=== PATIENT | male | born 1990 | race Caucasian/White ===

== ENCOUNTER 2018-12-07 13:17 | Emergency (ER) | payer SELFPAY ==
[2018-12-07] MEDS ORDERED: NA CHLORIDE 0.9% 1,000 ML ONE ×2 (13:51→14:49)
[2018-12-07 14:09] LABS: Absolute Monocytes 0.9 K/uL (0.1-1.3); Absolute Neutrophil 11.8 K/uL (1.8-8.0); Basophils % 0.9 % (0-1.3); Eosinophils % 0.2 % (0-4.4); Lymphocytes % 13.6 % (15.3-44.8); Monocytes % 6.1 % (3.3-12.3); RBC Red Blood Cell Count 5.88 M/uL (4.33-5.43)
[2018-12-07 14:33] LABS: BUN Blood Urea Nitrogen 22 mg/dL (7-18); Bicarbonate 25 mmol/L (21-32); CKMB Creatine Kinase MB 2.2 ng/mL (0.3-3.6); Creatine Phosphokinase 278 U/L (39-308); Glucose Level 86 mg/dL (74-106); Potassium 3.9 mmol/L (3.5-5.1); Sodium Level 139 mmol/L (136-145); Troponin (Emerg Dept Use Only) < 0.02 ng/mL (0.0-0.045)
--- NOTE | 2018-12-07 15:33 | EDPHYS ---
Physician Documentation [facility] Name: Tevin King Age: 28 yrs Sex: Male : 1990 Arrival Date: 12/07/2018 Time: 13:19 Bed 20 Private MD: ED Physician Randy Keller HPI: 12/07 15:41 This 28 yrs old Male presents to ER via Ambulatory with complaints of Heat kb Exposure. 15:41 . kb 15:41 The patient has experienced near-syncope, almost passed out. Onset: The kb symptoms/episode began/occurred just prior to arrival. Duration: This was a single episode. Context: the episode(s) was witnessed, by co-worker(s), occurred outdoors, occurred while the patient was working. Associated injury: The patient did not suffer any apparent associated injury. Associated signs and symptoms: Pertinent positives: lightheadedness. Current symptoms: Currently, the patient is not experiencing any symptoms, the patient feels back to baseline, no decreased level of consciousness, no confusion, no dysphasia, no headache, no paralysis, no visual changes. The patient has not experienced similar symptoms in the past. The patient has not recently seen a physician. Pt states he has been working outside all day and didn't have anything to drink. States he stopped sweating and felt like he was going to pass out so he came in.. Historical: - Allergies: 13:22 No Known Allergies; la1 - PMHx: 13:22 None; la1 - Immunization history:: Adult Immunizations up to date. - Social history:: Smoking status: Patient uses tobacco products, smokes one pack cigarettes per day. - Ebola Screening: : No symptoms or risks identified at this time. ROS: 15:40 Constitutional: Negative for fever, chills, and weight loss, ENT: Negative for injury, kb pain, and discharge, Neck: Negative for injury, pain, and swelling, Cardiovascular: Negative for chest pain, palpitations, and edema, Respiratory: Negative for shortness of breath, cough, wheezing, and pleuritic chest pain, Abdomen/GI: Negative for abdominal pain, nausea, vomiting, diarrhea, and constipation, MS/Extremity: Negative for injury and deformity, Skin: Negative for injury, rash, and discoloration. 15:40 Neuro: Positive for near syncope. Exam: 15:40 Constitutional: This is a well developed, well nourished patient who is awake, alert, kb and in no acute distress. Head/Face: Normocephalic, atraumatic. Eyes: Pupils equal round and reactive to light, extra-ocular motions intact. Lids and lashes normal. Conjunctiva and sclera are non-icteric and not injected. Cornea within normal limits. Periorbital areas with no swelling, redness, or edema. ENT: Nares patent. No nasal discharge, no septal abnormalities noted. Tympanic membranes are normal and external auditory canals are clear. Oropharynx with no redness, swelling, or masses, exudates, or evidence of obstruction, uvula midline. Mucous membranes moist. Neck: Trachea midline, no thyromegaly or masses palpated, and no cervical lymphadenopathy. Supple, full range of motion without nuchal rigidity, or vertebral point tenderness. No Meningismus. Chest/axilla: Normal chest wall appearance and motion. Nontender with no deformity. No lesions are appreciated. Cardiovascular: Regular rate and rhythm with a normal S1 and S2. No gallops, murmurs, or rubs. Normal PMI, no JVD. No pulse deficits. Respiratory: Lungs have equal breath sounds bilaterally, clear to auscultation and percussion. No rales, rhonchi or wheezes noted. No increased work of breathing, no retractions or nasal flaring. Abdomen/GI: Soft, non-tender, with normal bowel sounds. No distension or tympany. No guarding or rebound. No evidence of tenderness throughout. Skin: Warm, dry with normal turgor. Normal color with no rashes, no lesions, and no evidence of cellulitis. MS/ Extremity: Pulses equal, no cyanosis. Neurovascular intact. Full, normal range of motion. Neuro: Awake and alert, GCS 15, oriented to person, place, time, and situation. Cranial nerves II-XII grossly intact. Motor strength 5/5 in all extremities. Sensory grossly intact. Cerebellar exam normal. Normal gait. Vital Signs: 13:22 BP 140 / 115; Pulse 115; Resp 16; Temp 98.7; Pulse Ox 98% on R/A; Weight 72.57 kg; la1 Height 6 ft. 0 in. (182.88 cm); 13:36 BP 157 / 69 Supine; Pulse 81; Resp 18; Pulse Ox 99% on R/A; hj 13:36 BP 148 / 90 Sitting; Pulse 92; Resp 18; Pulse Ox 99% on R/A; hj 13:36 BP 151 / 100 Standing; Pulse 108; Resp 18; Pulse Ox 99% on R/A; hj 14:11 BP 160 / 93; Pulse 88; Resp 18; Pulse Ox 100% on R/A; hj 14:40 BP 150 / 93; Pulse 83; Resp 18; Pulse Ox 100% on R/A; hj 15:04 BP 154 / 81; Pulse 82; Resp 18; Pulse Ox 100% on R/A; hj 13:22 Body Mass Index 21.70 (72.57 kg, 182.88 cm) la1 MDM: 13:24 Patient medically screened. kb 15:40 Data reviewed: vital signs, nurses notes. Data interpreted: Pulse oximetry: on room air kb is 100 %. Interpretation: normal. Counseling: I had a detailed discussion with the patient and/or guardian regarding: the historical points, exam findings, and any diagnostic results supporting the discharge/admit diagnosis, lab results, the need for outpatient follow up, a family practitioner, to return to the emergency department if symptoms worsen or persist or if there are any questions or concerns that arise at home. 12/07 13:29 Order name: CBC with Diff; Complete Time: 14:20 kb 12/07 13:29 Order name: Basic Metabolic Panel; Complete Time: 14:34 kb 12/07 13:29 Order name: Ckmb; Complete Time: 14:34 kb 12/07 13:29 Order name: CPK; Complete Time: 14:34 kb 12/07 13:29 Order name: Troponin (emerg Dept Use Only); Complete Time: 14:34 kb 12/07 13:29 Order name: IV Start; Complete Time: 13:35 kb 12/07 13:29 Order name: Orthostatics; Complete Time: 13:35 kb 12/07 13:29 Order name: EKG; Complete Time: 13:30 kb 12/07 13:29 Order name: EKG - Nurse/Tech; Complete Time: 13:35 kb 12/07 15:25 Order name: Urine Dipstick-Ancillary (obtain specimen); Complete Time: 15:33 kb Administered Medications: 13:39 Drug: NS 0.9% 1000 ml Route: IV; Rate: 1000 ml; Site: left antecubital; hj 14:34 Follow up: IV Status: Completed infusion; IV Intake: 1000ml hj 14:34 Drug: NS 0.9% 1000 ml Route: IV; Rate: 1000 ml; Site: left antecubital; hj 15:33 Follow up: IV Status: Completed infusion; IV Intake: 1000ml Disposition: 16:55 Co-signature as Attending Physician, Randy Keller MD. rn Disposition: 12/07/18 15:32 Discharged to Home. Impression: Exposure to excessive natural heat, Dehydration. - Condition is Stable. - Discharge Instructions: Near-Syncope, Dwte-we-Lvns, Dehydration, Adult, Buou-de-Pczy. - Medication Reconciliation Form, Thank You Letter, Antibiotic Education, Prescription Opioid Use, Work release form form. - Follow up: Emergency Department; When: As needed; Reason: Worsening of condition. Follow up: Private Physician; When: 2 - 3 days; Reason: Recheck today's complaints, Continuance of care, Re-evaluation by your physician. Signatures: Dispatcher [employer] EDPR Nati Ruby, BAG CUTTER-C BAG CUTTER-Ckb Randy Keller MD MD rn Attema, Lee, RN RN laMichele Galdamez RN RN Corrections: (The following items were deleted from the chart) 15:39 15:32 12/07/2018 15:32 Discharged to Home. Impression: Exposure to excessive natural hj heat; Dehydration. Condition is Stable. Forms are Medication Reconciliation Form, Thank You Letter, Antibiotic Education, Prescription Opioid Use. Follow up: Emergency Department; When: As needed; Reason: Worsening of condition. Follow up: Private Physician; When: 2 - 3 days; Reason: Recheck today's complaints, Continuance of care, Re-evaluation by your physician. kb
--- NOTE | 2018-12-07 15:33 | ER ---
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 Transition of care: patient was not received from another setting of care. Onset of symptoms was December 07, 2018. Risk Assessment: Do you want to hurt yourself or someone else? Patient reports no desire to harm self or others. Initial Sepsis Screen: Does the patient meet any 2 criteria? No. Patient's initial sepsis screen is negative. Does the patient have a suspected source of infection? No. Patient's initial sepsis screen is negative. Care prior to arrival: None. 13:21 Method Of Arrival: Ambulatory la1 13:21 Acuity: HAIDER 3 la1 Historical: - Allergies: 13:22 No Known Allergies; la1 - PMHx: 13:22 None; la1 - Immunization history:: Adult Immunizations up to date. - Social history:: Smoking status: Patient uses tobacco products, smokes one pack cigarettes per day. - Ebola Screening: : No symptoms or risks identified at this time. Screenin:22 Abuse screen: Denies threats or abuse. Denies injuries from another. Nutritional hj screening: No deficits noted. Tuberculosis screening: No symptoms or risk factors identified. Fall Risk None identified. Assessment: 13:22 General: Appears in no apparent distress. uncomfortable, Behavior is calm, cooperative, hj appropriate for age. Pain: Denies pain. Neuro: Level of Consciousness is awake, alert, obeys commands, Oriented to person, place, time, situation, Appropriate for age. Cardiovascular: Capillary refill < 3 seconds Patient's skin is warm and dry. Respiratory: Airway is patent Respiratory effort is even, unlabored, Respiratory pattern is regular, symmetrical. GI: No signs and/or symptoms were reported involving the gastrointestinal system. : No signs and/or symptoms were reported regarding the genitourinary system. EENT: No signs and/or symptoms were reported regarding the EENT system. Derm: No signs and/or symptoms reported regarding the dermatologic system. Musculoskeletal: No signs and/or symptoms reported regarding the musculoskeletal system. 14:10 Reassessment: Patient and/or family updated on plan of care and expected duration. Pain hj level reassessed. Patient is alert, oriented x 3, equal unlabored respirations, skin warm/dry/pink. awaiting results and POC; fluids still running;. 14:40 Reassessment: Patient and/or family updated on plan of care and expected duration. Pain hj level reassessed. Patient is alert, oriented x 3, equal unlabored respirations, skin warm/dry/pink. 2nd bag of NS 1L running; Patient states feeling better. Patient states symptoms have improved. 15:04 Reassessment: Patient and/or family updated on plan of care and expected duration. Pain hj level reassessed. Patient is alert, oriented x 3, equal unlabored respirations, skin warm/dry/pink. 2 nd bag of NS 1L still running; Patient states feeling better. Patient states symptoms have improved. Vital Signs: 13:22 BP 140 / 115; Pulse 115; Resp 16; Temp 98.7; Pulse Ox 98% on R/A; Weight 72.57 kg; la1 Height 6 ft. 0 in. (182.88 cm); 13:36 BP 157 / 69 Supine; Pulse 81; Resp 18; Pulse Ox 99% on R/A; hj 13:36 BP 148 / 90 Sitting; Pulse 92; Resp 18; Pulse Ox 99% on R/A; hj 13:36 BP 151 / 100 Standing; Pulse 108; Resp 18; Pulse Ox 99% on R/A; hj 14:11 BP 160 / 93; Pulse 88; Resp 18; Pulse Ox 100% on R/A; hj 14:40 BP 150 / 93; Pulse 83; Resp 18; Pulse Ox 100% on R/A; hj 15:04 BP 154 / 81; Pulse 82; Resp 18; Pulse Ox 100% on R/A; hj 13:22 Body Mass Index 21.70 (72.57 kg, 182.88 cm) la1 ED Course: 13:19 Patient arrived in ED. mr 13:22 Triage completed. la1 13:22 Patient has correct armband on for positive identification. Placed in gown. Bed in low hj position. Call light in reach. Side rails up X 1. 13:23 Gallo, Michele, RN is Primary Nurse. hj 13:23 Arm band placed on right wrist. la1 13:24 Nati Ruby FNP-C is PSYCHIATRIC. kb 13:24 Randy Keller MD is Attending Physician. kb 13:35 Initial lab(s) drawn, by me, sent to lab. Inserted saline lock: 20 gauge in left hj antecubital area, using aseptic technique. Blood collected. 13:41 EKG done, by clinical dental technician. reviewed by Nati LOPES. at1 15:39 No provider procedures requiring assistance completed. IV discontinued, intact, hj bleeding controlled, No redness/swelling at site. Pressure dressing applied. Administered Medications: 13:39 Drug: NS 0.9% 1000 ml Route: IV; Rate: 1000 ml; Site: left antecubital; hj 14:34 Follow up: IV Status: Completed infusion; IV Intake: 1000ml hj 14:34 Drug: NS 0.9% 1000 ml Route: IV; Rate: 1000 ml; Site: left antecubital; hj 15:33 Follow up: IV Status: Completed infusion; IV Intake: 1000ml hj Intake: 14:34 IV: 1000ml; Total: 1000ml. hj 15:33 IV: 1000ml; Total: 2000ml. hj Outcome: 15:32 Discharge ordered by . kb 15:39 Discharged to home ambulatory. hj 15:39 Condition: stable 15:39 Discharge instructions given to patient, Instructed on discharge instructions, follow up and referral plans. Demonstrated understanding of instructions, follow-up care. 15:39 Patient left the ED. hj Signatures: Nati Ruby FNP-C FNP-Ckb Shannon Chauhan Amanda, site engineer EKG Tat1 Andriy Nguyen, RN RN la1 Michele Holder, RN RN hj
--- NOTE | 2018-12-07 18:24 | EKG ---
Test Date: 2018-12-07 Test Time: 13:34:52 [employer] Attendant: MAGDALENA MEASUREMENT RESULTS: Intervals: Rate: 86 RI: 138 QRSD: 92 QT: 338 QTc: 404 [place]: P: 64 RI: 138 QRS: 43 T: 49 INTERPRETIVE STATEMENTS: Sinus rhythm with marked sinus arrhythmia with junctional escape complexes Early repolarization Otherwise normal ECG No previous ECG available for comparison Electronically Signed On 12-07-18 18:23:10 CDT by Kalia Patricia
== END 2018-12-07 15:39 | disposition home or self-care (01) ==
LOC: ER 13:17
DX: E86.0 Dehydration (principal); X30.XXXA Exposure to excessive natural heat, initial encounter; F17.210 Nicotine dependence, cigarettes, uncomplicated
CPT/HCPCS: 36415; 80048; 82550; 82553; 84484; 85025; 93005; 96360; 96361; 99284; J7030

== ENCOUNTER 2019-01-07 12:16 | Emergency (ER) | payer SELFPAY ==
--- OUTSIDE RECORDS SUMMARY | 2019-01-07 12:19 | XMS REPORT | Continuity of Care Document ---
:1990 Author Organization [facility] Address [address] [place] [address] Phone Unavailable Care Team Providers Name Role Phone NO, PCP Primary Care Physician Unavailable Advance Directives Directive Response Recorded Date/Time Does the patient have an advance directive? No 11/07/12 8:41pm If yes, is advance directive on file with [facility]? No 11/07/12 8:41pm If not on file with [facility] will patient provide a copy? No 11/07/12 8:41pm Do you have a Directive to Physician? No 10/19/18 5:11pm Do you have a Medical Power of Senior Designer? No 10/19/18 5:11pm Do you have an out of hospital Do Not Resuscitate Order? No 10/19/18 5:11pm Do you have any special needs we should be aware of? No 10/19/18 5:11pm Do you have a support person here with you today? Yes 10/19/18 5:11pm Did patient receive Notice of Privacy Practices? Yes 10/19/18 5:11pm Did patient receive patient rights and responsibilities? Yes 10/19/18 5:11pm Problems No problem information available. Medications No known medications. Social History No social history information available. Hospital Discharge Instructions No hospital discharge instruction information available. Plan of Care Discharge Date 10/19/18 7:13pm Disposition HOME, SELF-CARE Condition at Discharge Stable Instructions/Education Provided Laceration Forms Provided Work/School Excuse Prescriptions See Medication Section Referrals ZHEN JOHANSEN MD Address: [address] [place] [address] Additional Instructions/Education 1. keep wound clean and dry 2. tylenol and motrin 3. return to ed as needed 4. follow up with plastics doctor in 1-2 days without fail Functional Status No functional status information available. Allergies, Adverse Reactions, Alerts No known allergies. Immunizations No immunization information available. Vital Signs Acute Vital Signs Vital Response Date/Time Height 6 ft 0 in 10/19/2018 5:07pm Weight 165 lb 10/19/2018 5:07pm Body Mass Index 22.4 kg/m^2 10/19/2018 5:07pm Results No relevant diagnostic test, laboratory data and/or discharge summary information available. Procedures No procedure information available. Encounters Encounter Location Arrival/Admit Date Discharge/Depart Date Attending Provider Departed [facility] 10/19/18 4:47pm 10/19/18 7:13pm [facility], Emergency Room Patients Jose Ennis MD Center
--- OUTSIDE RECORDS SUMMARY | 2019-01-07 12:19 | XMS REPORT ---
:1990 [facility] [place] [address] Care Team Providers Name Role Phone Unavailable Unavailable Unavailable Problems This patient has no known problems. Allergies, Adverse Reactions, Alerts This patient has no known allergies or adverse reactions. Medications This patient has no known medications. Results Test Description Test Time Test Comments Text Results Atomic Results Result Comments SYPHILIS (T. PALLIDUM) 2018-06-22 22:43:00 Test Item Value Reference Range Comments SYPHIGG (test code=SYPHIGG) NONREACTIVE NONREACTIVE Spyhilis IGG is a screening test only. All REACTIVE results abundio be confirmed by additional testing. ER SCREEN FOR HIV 12:38:00 Test Item Value Reference Range Comments HIV 1/2 AB (test NONREACTIVE NONREACTIVE This test is used for SCREENING code=SCRN HIV) purposes only. All reactive results are prelimenary and confirmation results will follow. CHEST 1 VIEW [id number] 07:18:[address] [id number] IMAGING REPORTPatient Name : RENAY BAÑUELOS ADate of Service: [id number]: 27 Sex: M Order #: [id number] Room: ERSDOB: 1990 X-Ray Number: [id number] Record Number: [id number] Hospital Number: [id number] Physician: ALMA COBIAN Physician: ALMA COBIAN 1 VIEW PORTABLE 06/21/201810:31 PM:History: Congestion . Cough. Suicidal ideation. Left lung pleurisy.Comparison: 2017Technique: 1 view chestFindings:The cardiomediastinal silhouette is normal. The lungs are clear withoutinfiltrate, effusion, or pneumothorax. The bones are intact.Impression:No acute cardiopulmonary process.Electronically Signed By: Davion Godwin M.D., 06/22/2018 7:16 AMLegally authenticated by CEE KENNEDY 2018-06-22 07:16:10THYROID STIMULATION [id number] 00:16: 00 Test Item Value Reference Range Comments TSH (test code=TSH) 0.46 UIU/ML 0.465-4.68 URINE DRUG [id number] 16:47:00 Test Item Value Reference Range Comments AMPHET (test code=BAMP) NEGATIVE NEGATIVE This is an unconfirmed screening. Result are to be used for medical purposes (treatment) only. Not intended for non-medical purposes. Cut-off concentration for a positive result for each drug: Amphetamine - 1,000 ng/ml Barbiturate - 200 ng/ml Benzodiazepine - 200 ng/ml Cannabinoids - 50 ng/ml Cocaine - 300 ng/ml Opiates - 300 ng/ml PCP - 25 ng/ml BARBITURATES (test code=BBAR) NEGATIVE NEGATIVE BENZO (test code=BBENZ) NEGATIVE NEGATIVE CANNABS (test code=BCANN) POSITIVE NEGATIVE COCAINE (test code=BCOC) NEGATIVE NEGATIVE OPIATES (test code=BOPI) NEGATIVE NEGATIVE PCP (test code=BMTPCP) NEGATIVE NEGATIVE [id number] 16:24:00 Test Item Value Reference Range Comments GLUCOSE (test code=URGLU) NEGATIVE MG/DL NEG-100 BILIRUBN (test code=URBILI) NEGATIVE NEGATIVE KETONE (test code=URKET) NEGATIVE MG/DL NEGATIVE BLOOD (test code=URBLD) NEGATIVE UR PH (test code=URPH) 6.5 5.0-7.5 PROTEIN (test code=URPRO) NEGATIVE MG/DL NEGATIVE NITRITES (test code=URNIT) NEGATIVE NEGATIVE UROBILINGEN (test code=URURO) 0.2 EU/DL 0.2-1.0 LEUKOCYT (test code=URLEU) NEGATIVE NEGATIVE UA COLOR (test code=UA COLOR) YELLOW YELLOW CLARITY (test code=CLARITY) CLEAR CLEAR SP GRAV (test code=URSPGRAV) 1.021 1.000-1.025 UAMICRO (test code=UAMICRO) NO HEPATITIS C ANTIBODY [id number] 15:51:00 Test Item Value Reference Range Comments SCRN HCV (test code=SCRN NEGATIVE NEGATIVE Hepatitis C Antibody test is for HCV) screening purposes only. All reactives will be confirmed by additional testing. BLOOD ALCOHOL (ETOH)2018-06-21 14:39:00 Test Item Value Reference Range Comments ALCOHOL BLOOD LEVEL (test <10 MG/DL 0-10 Results are to be used for code=ALC BLD) medical purposes (treatment) only. Not intended for non medical purposes. CREATINE [id number] 14:39:00 Test Item Value Reference Range Comments CK (test code=CK) 62 U/L 55-170 LIVER [id number] 14:39:00 Test Item Value Reference Range Comments TOTPROT (test code=TOTPROT) 6.4 G/DL 6.3-8.2 ALBUMIN (test code=ALBSERUM) 4.1 G/DL 3.5-5.0 BILITOT (test code=BILITOT) 0.4 MG/DL 0.2-1.3 BILIDIR (test code=BILIDIR) 0.2 MG/DL 0.0-0.4 AST (test code=AST) 19 U/L 15-46 PHOSALK (test code=PHOSALK) 56 U/L 38-126 ALT (test code=ALT) 26 U/L 13-69 BMP, BASIC METABOLIC [id number] 14:39:00 Test Item Value Reference Range Comments SODIUM (test code=NA) 141 MMOL/L 137-145 K+ (test code=KSERUM) 5.1 MMOL/L 3.5-5.1 PLEASE NOTE NEW REFERENCE RANGE(S) IN EFFECT EFFECTIVE 02/27/2010 - NEW ANALYZER ([employer] 5600) CHLORIDE (test code=CL) 109 MMOL/L 98-107 CO2 (test code=CO2) 29 MMOL/L 22-30 BUN (test code=BUN) 10 MG/DL 9-20 CREA (test code=CREA) 0.9 MG/DL 0.8-1.5 GLUCOSE (test 99 MG/DL 70-99 Fasting glucose normal code=GLUCOSE) <100 MG/DL- [place] [employer] recommendation CALCIUM (test 9.3 MG/DL 8.4-10.2 code=CABLOOD) GFR (test code=GFR) 109 mL/min/1.73m2 A GFR of >90 mL/min/1.73m2 is considered normal. [id number] 14:23:00 Test Item Value Reference Range Comments WBC (test code=WBC) 7.9 K/UL 3.5-10.9 RBC (test code=RBC) 5.17 M/UL 4.3-5.7 HGB (test code=HGB) 15.6 G/DL 13.0-17.9 HCT (test code=HCT) 47.0 % 38-52 MCV (test code=MCV) 90.9 FL 80-98 MCH (test code=MCH) 30.2 PG 28-32 MCHC (test code=MCHC) 33.2 G/DL 32.5-36.5 RDW (test code=RDW) 13.2 % 11.5-14.5 PLT (test code=PLT) 285 K/UL 150-450 MPV (test code=MPV) 10.1 FL 7.4-10.4 MANDIFF (test code=MANDIFF) NO SCAN (test code=SCAN) NO NEUT% (test code=NEUT%) 54.4 % 40-75 LYMPH% (test code=LYMPH%) 26.8 % 24-44 MONO% (test code=MONO%) 7.8 % 0-13 EOS% (test code=EOS%) 9.5 % 0-4 BASO % (test code=BASO%) 1.0 % 0-2 IG (test code=IG) 0 % 0-1 IG% (test code=IG%) 0.5 % 0-1 IG%=Metamyelocytes, Myelocytes, and Promyelocytes. (Immature neutrophils not including "bands".) > 3% IG indicates risk of sepsis NRBC% (test code=NRBC%) 0 /100 WBC ABS NEUT (test code=NEUT) 4.3 K/UL 1.2-7.2 CHEST XR 2 [id number] 07:16:[address] [id number] IMAGING REPORTPatient Name: RENAY BAÑUELOS ADate of Service: [id number]: 27 Sex: M Order #: [id number] [facility] 1990 X-[facility] Number: [id number] Record Number: [id number] Hospital Number: [id number] Physician: DIOMEDES VOOrdering Physician: Aline VO 2 views 05/16/2018History: Left-sided chest pain, pleurisyComparison: 01/12/2018Cardiac, hilar, and mediastinal structures are normal. Lungs arewell-aerated and clear. No acute bony or soft tissue abnormalities areidentified.Impression:Clear chest.The study was performed on an emergent basis and preliminary report faxedto the Emergency Department by the [facility] Radiology [facility] service nearthe time of the exam.Electronically SignedBy: Gus Gutierrez M.D., 05/16/2018 7:13 AMLegally authenticated by LUIS PINEDA 2018-05-16 07:13:58MONONUCLEOSIS RAPID [id number] 06:04:00 Test Item Value Reference Range Comments LOT # (test code=LOT #) [id number] EXP DATE (test code=EXP DATE) 10-26-2018 POS CNTL (test code=POS CNTL) POSITIVE POSITIVE NEG CNTL (test code=NEG CNTL) NEGATIVE NEGATIVE MONONUCLEOSIS (test code=MONONUC) NEGATIVE NEGATIVE [id number] 05:35:00 Test Item Value Reference Range Comments SODIUM (test code=NA) 140 MMOL/L 137-145 K+ (test code=KSERUM) 4.6 MMOL/L 3.5-5.1 PLEASE NOTE NEW REFERENCE RANGE(S) IN EFFECT EFFECTIVE 02/27/2010 - NEW ANALYZER ([employer] 56[employer]) CHLORIDE (test code=CL) 102 MMOL/L 98-107 CO2 (test code=CO2) 29 MMOL/L 22-30 BUN (test code=BUN) 9 MG/DL 9-20 CREA (test code=CREA) 1.0 MG/DL 0.8-1.5 GLUCOSE (test 90 MG/DL 70-99 Fasting glucose normal code=GLUCOSE) <100 MG/DL- [place] [employer] recommendation CALCIUM (test 9.5 MG/DL 8.4-10.2 code=CABLOOD) TOTPROT (test 6.7 G/DL 6.3-8.2 code=TOTPROT) ALBUMIN (test 4.2 G/DL 3.5-5.0 code=ALBSERUM) BILITOT (test 0.7 MG/DL 0.2-1.3 code=BILITOT) AST (test code=AST) 24 U/L 15-46 PHOSALK (test 74 U/L 38-126 code=PHOSALK) ALT (test code=ALT) 27 U/L 13-69 GFR (test code=GFR) 97 mL/min/1.73m2 A GFR of >90 mL/min/1.73m2 is considered normal. [id number] 05:18:00 Test Item Value Reference Range Comments WBC (test code=WBC) 9.7 K/UL 3.5-10.9 RBC (test code=RBC) 5.64 M/UL 4.3-5.7 HGB (test code=HGB) 16.7 G/DL 13.0-17.9 HCT (test code=HCT) 49.7 % 38-52 MCV (test code=MCV) 88.1 FL 80-98 MCH (test code=MCH) 29.6 PG 28-32 MCHC (test code=MCHC) 33.6 G/DL 32.5-36.5 RDW (test code=RDW) 13.4 % 11.5-14.5 PLT (test code=PLT) 293 K/UL 150-450 MPV (test code=MPV) 9.6 FL 7.4-10.4 MANDIFF (test code=MANDIFF) NO SCAN (test code=SCAN) NO NEUT% (test code=NEUT%) 66.9 % 40-75 LYMPH% (test code=LYMPH%) 20.1 % 24-44 MONO% (test code=MONO%) 11.2 % 0-13 EOS% (test code=EOS%) 1.0 % 0-4 BASO % (test code=BASO%) 0.4 % 0-2 IG (test code=IG) 0 % 0-1 IG% (test code=IG%) 0.4 % 0-1 IG%=Metamyelocytes, Myelocytes, and Promyelocytes. (Immature neutrophils not including "bands".) > 3% IG indicates risk of sepsis NRBC% (test code=NRBC%) 0 /100 WBC ABS NEUT (test code=NEUT) 6.5 K/UL 1.2-7.2 CT ABDOMEN/PELVIS [id number] 07:27:00[address] [id number] IMAGING REPORTPatient Name : RENAY BAÑUELOS of Service: [id number]: 27 Sex: M Order #: [id number] [facility] 1990 X-Ray Number: [id number] Record Number: [id number] Hospital Number: [id number] Physician: Ji VOing Physician: BRETT VO ABDOMEN/PELVIS WITHOUT 04/20/20186:01 AMHISTORY: FLANK PAIN . Right-sided abdominal pain with vomiting. Rightflank pain.COMPARISON: NoneTECHNIQUE: Unenhanced CT imaging of the abdomen and pelvis. This CT examwas performed using one or more of the following dose reduction techniques:Automated exposure control, adjustment of the mAand/or KV according topatient size, or use of iterative reconstruction technique.FINDINGS: The lung bases are clear. The heart size is normal.The liver, spleen, pancreas, adrenal glands, and kidneys allhave a normalnoncontrast enhanced appearance. There is no renal or ureteral calculus.The bowel is unobstructed. The appendix is normal. The bladder is distendedand normal.The bones are intact without acute abnormality. There is an intramedullarynail partially visualized in the right femur.IMPRESSION:No acute abnormality of the abdomen or pelvis.Electronically Signed By: Davion Godwin M.D., 04/20/2018 7:25 AMLegally authenticated by CEE KENNEDY 2018-04-20 07:25:06BMP, BASIC METABOLIC [id number] 05:53:00 Test Item Value Reference Range Comments SODIUM (test code=NA) 143 MMOL/L 137-145 K+ (test code=KSERUM) 4.3 MMOL/L 3.5-5.1 PLEASE NOTE NEW REFERENCE RANGE(S) IN EFFECT EFFECTIVE 02/27/2010 - NEW ANALYZER ([employer] 5600) CHLORIDE (test code=CL) 109 MMOL/L 98-107 CO2 (test code=CO2) 26 MMOL/L 22-30 BUN (test code=BUN) 10 MG/DL 9-20 CREA (test code=CREA) 1.0 MG/DL 0.8-1.5 GLUCOSE (test 84 MG/DL 70-99 Fasting glucose normal code=GLUCOSE) <100 MG/DL- [place] [employer] recommendation CALCIUM (test 9.4 MG/DL 8.4-10.2 code=CABLOOD) GFR (test code=GFR) 97 mL/min/1.73m2 A GFR of >90 mL/min/1.73m2 is considered normal. LIVER [id number] 05:53:00 Test Item Value Reference Range Comments TOTPROT (test code=TOTPROT) 6.6 G/DL 6.3-8.2 ALBUMIN (test code=ALBSERUM) 4.2 G/DL 3.5-5.0 BILITOT (test code=BILITOT) 0.3 MG/DL 0.2-1.3 BILIDIR (test code=BILIDIR) 0.0 MG/DL 0.0-0.4 AST (test code=AST) 20 U/L 15-46 PHOSALK (test code=PHOSALK) 54 U/L 38-126 ALT (test code=ALT) 19 U/L 13-69 [id number] 05:53:00 Test Item Value Reference Range Comments LIPASE (test code=LIPA) 128 U/L 23-300 [id number] 05:16:00 Test Item Value Reference Range Comments GLUCOSE (test code=URGLU) NEGATIVE MG/DL NEG-100 BILIRUBN (test code=URBILI) NEGATIVE NEGATIVE KETONE (test code=URKET) NEGATIVE MG/DL NEGATIVE BLOOD (test code=URBLD) NEGATIVE UR PH (test code=URPH) 5.5 5.0-7.5 PROTEIN (test code=URPRO) NEGATIVE MG/DL NEGATIVE NITRITES (test code=URNIT) NEGATIVE NEGATIVE UROBILINGEN (test code=URURO) 1.0 EU/DL 0.2-1.0 LEUKOCYT (test code=URLEU) SMALL NEGATIVE UA COLOR (test code=UA COLOR) YELLOW YELLOW CLARITY (test code=CLARITY) CLEAR CLEAR SP GRAV (test code=URSPGRAV) 1.018 1.000-1.025 UAMICRO (test code=UAMICRO) YES WBC (test code=URWBC) 20 /HPF 0-5 RBC (test code=URRBC) 0 /HPF 0-2 CASTS (test code=CAST) 1 /LPF 0-3 UR EPI (test code=EPI) 10 /LPF BACTERIA (test code=BACTERIA) NEGATIVE NONE [id number] 05:15:00 Test Item Value Reference Range Comments WBC (test code=WBC) 8.9 K/UL 3.5-10.9 RBC (test code=RBC) 4.94 M/UL 4.3-5.7 HGB (test code=HGB) 14.6 G/DL 13.0-17.9 HCT (test code=HCT) 43.3 % 38-52 MCV (test code=MCV) 87.7 FL 80-98 MCH (test code=MCH) 29.6 PG 28-32 MCHC (test code=MCHC) 33.7 G/DL 32.5-36.5 RDW (test code=RDW) 13.2 % 11.5-14.5 PLT (test code=PLT) 251 K/UL 150-450 MPV (test code=MPV) 10.4 FL 7.4-10.4 MANDIFF (test code=MANDIFF) NO SCAN (test code=SCAN) NO NEUT% (test code=NEUT%) 48.9 % 40-75 LYMPH% (test code=LYMPH%) 39.2 % 24-44 MONO% (test code=MONO%) 9.5 % 0-13 EOS% (test code=EOS%) 1.8 % 0-4 BASO % (test code=BASO%) 0.4 % 0-2 CHEST 1 VIEW [id number] 08:43:00[address] [id number] IMAGING REPORTPatient Name : RENAY BAÑUELOSramin of Service: [id number]: 27 Sex: M Order #: [id number] Room: QERDOB: 1990 X-Ray Number: [id number] Record Number: [id number] Hospital Number: [id number] Physician: ALMA COBIAN Physician: ALMA COBIAN PORTABLE CHEST at 0820 hours January 12, 2018:CLINICAL HISTORY: DyspneaTECHNIQUE: One viewFINDINGS: The heart and vascularity are within normal limits and the lungsare clear.The bony thorax is intact.Impression : Normal chestElectronically Signed By: Jus Baker M.D., 01/12/2018 8: 40 AMLegally authenticated by ROSA M Wheeler 2018-01-12 08:40:50CHEST XR 2 [id number] 08:31:00[address] [id number] IMAGING REPORTPatient Name: RENAY BAÑUELOS of Service: [id number]: 27 Sex: M Order #: [id number] Room: ERSDOB: 1990 X-Ray Number: [id number] Record Number: [id number] Hospital Number: [id number] Physician: DIANA DA SILVAOrdering Physician: Mira DA SILVA 2 views 8:00 AMComparisons: 11/25/2015HISTORY: Chest tightness, chest pain and shortness of breath.FINDINGS:Heart size isnormal.There is no focal lung consolidation.There is no definite pleural effusion or pneumothorax identified.IMPRESSION:No acute cardiopulmonary process.Electronically Signed By: Enrike Chaudhary M.D., 11/01/2017 8:29 AMLegally authenticated by SANJUANA GURROLA 2017-11-01 08:29:01TROPOANNA MARIE [id number] 07:58:00 Test Item Value Reference Range Comments TROPER (test code=TROPER) 0.00 ng/ml 0.0-0.08 INTERPRETIVE DATA A POC TROPONIN OF </=0.08 NG/ML IS CONSIDERED NEGATIVE
--- NOTE | 2019-01-07 12:56 | EDPHYS ---
Physician Documentation [facility] Name: Tevin King Age: 28 yrs Sex: Male : 1990 Arrival Date: 01/07/2019 Time: 12:17 Bed 14 Private MD: ED Physician Enrike Reaves HPI: 01/07 12:50 This 28 yrs old Male presents to ER via EMS with complaints of tooth pain. cp 12:50 The patient presents with broken tooth/teeth, pain. The problem is located in the right cp lower molar. Onset: The symptoms/episode began/occurred 2 day(s) ago. Duration: The symptoms are continuous, and are steadily getting worse. Associated signs and symptoms: Pertinent positives: pain, swelling, facial, Pertinent negatives: anorexia, chills, dysphagia, fever, inability to eat. Severity of symptoms: in the emergency department the symptoms are unchanged, despite home interventions. Historical: - Allergies: 12:17 No Known Allergies; rb1 - Home Meds: 12:17 None [Active]; rb1 - PMHx: 12:17 mouth abscess; rb1 - PSHx: 12:17 None; rb1 - Immunization history:: Adult Immunizations up to date. - Social history:: Smoking status: Patient uses tobacco products, smokes one pack cigarettes per day. - Ebola Screening: : Patient negative for fever greater than or equal to 101.5 degrees Fahrenheit, and additional compatible Ebola Virus Disease symptoms. ROS: 12:53 Constitutional: Negative for body aches, chills, fever, poor PO intake. cp 12:53 Eyes: Negative for injury, pain, redness, and discharge. cp 12:53 ENT: Positive for dental pain, Negative for drainage from ear(s), ear pain, sore throat, difficulty swallowing, difficulty handling secretions. 12:53 Cardiovascular: Negative for chest pain. 12:53 Respiratory: Negative for cough, wheezing. 12:53 Abdomen/GI: Negative for vomiting, diarrhea, constipation. 12:53 Neuro: Negative for altered mental status, headache, weakness. 12:53 All other systems are negative. Exam: 12:55 Constitutional: The patient appears in no acute distress, alert, awake, non-toxic, well cp developed, well nourished. 12:55 Head/face: Noted is tenderness, that is mild, of the right jaw. cp 12:55 Eyes: Periorbital structures: appear normal, Conjunctiva: normal, no exudate, no injection, Sclera: no appreciated abnormality, Lids and lashes: appear normal, bilaterally. 12:55 ENT: External ear(s): are unremarkable, Ear canal(s): are normal, clear, TM's: bulging, is not appreciated, bilaterally, dullness, bilaterally, erythema, is not appreciated, bilaterally, Nose: is normal, Mouth: Lips: moist, Oral mucosa: pink and intact, moist, Posterior pharynx: Airway: no evidence of obstruction, patent, Tonsils: are normal in appearance, Uvula: midline, non-edematous, no erythema, swelling, is not appreciated, erythema, is not appreciated, exudate, is not appreciated, Dental exam: abscess, is not appreciated, dental caries, that is moderate, diffusely, fractured teeth are noted, specifically the lower right second molar (#31), pain, that is moderate, specifically in the lower right second molar (#31), Voice: is normal. 12:55 Neck: ROM/movement: is normal, is supple, without pain, no range of motions limitations, no nuchal rigidity, Lymph nodes: no appreciated lymphadenopathy. 12:55 Chest/axilla: Inspection: normal. 12:55 Cardiovascular: Rate: normal. 12:55 Respiratory: the patient does not display signs of respiratory distress, Respirations: normal, no use of accessory muscles, no retractions, no splinting, no tachypnea. Vital Signs: 12:17 BP 134 / 77; Pulse 76; Resp 19; Temp 98.9(TE); Pulse Ox 95% on R/A; Weight 81.65 kg rb1 (R); Height 6 ft. 0 in. (182.88 cm) (R); Pain 7/10; 13:15 BP 148 / 93; Pulse 87; Resp 17; Temp 98.8(O); Pulse Ox 99% on R/A; Pain 7/10; rb1 12:17 Body Mass Index 24.41 (81.65 kg, 182.88 cm) rb1 MDM: 12:31 Patient medically screened. cp 12:45 Differential diagnosis: dental caries, dental abscess, pericoronitis. cp 12:56 Data reviewed: vital signs, nurses notes, and as a result, I will discharge patient. cp 12:56 Counseling: I had a detailed discussion with the patient and/or guardian regarding: the cp historical points, exam findings, and any diagnostic results supporting the discharge/admit diagnosis, the need for outpatient follow up, for definitive care, a dentist, maxillary facial surgery, to return to the emergency department if symptoms worsen or persist or if there are any questions or concerns that arise at home. Administered Medications: No medications were administered Disposition: 13:30 Chart complete. cp 01/08 12:47 Co-signature as Attending Physician, Enrike Reaves MD. Disposition: 01/07/19 12:56 Discharged to Home. Impression: Jaw pain - right lower. - Condition is Stable. - Discharge Instructions: Dental Caries, Adult, Dental Pain. - Prescriptions for Clindamycin HCl 300 mg Oral Capsule - take 1 capsule by ORAL route every 6 hours for 10 days; 40 capsule. Diclofenac Sodium 75 mg Oral Tablet, Delayed Release (E.C.) - take 1 tablet by ORAL route 2 times per day; 20 tablet. - Medication Reconciliation Form, Thank You Letter, Antibiotic Education, Prescription Opioid Use, Work release form form. - Follow up: Ozzie Jenkins DDS; When: 2 - 3 days; Reason: Recheck today's complaints. - Problem is new. - Symptoms are unchanged. Signatures: Tod Cotton PA PA cp Rasheeda Bloom, DESIRE RN rb1 Enrike Reaves MD MD Corrections: (The following items were deleted from the chart) 01/07 13:24 12:56 01/07/2019 12:56 Discharged to Home. Impression: Jaw pain - right lower. rb1 Condition is Stable. Forms are Medication Reconciliation Form, Thank You Letter, Antibiotic Education, Prescription Opioid Use. Follow up: Ozzie Jenkins; When: 2 - 3 days; Reason: Recheck today's complaints. Problem is new. Symptoms are unchanged. cp
--- NOTE | 2019-01-07 12:56 | ER ---
Nurse's Notes [facility] Name: Tevin King Age: 28 yrs Sex: Male : 1990 Arrival Date: 01/07/2019 Time: 12:17 Bed 14 Private MD: Diagnosis: Jaw pain-right lower Presentation: 01/07 12:17 Presenting complaint: EMS states: Pt. c/o abscess in his mouth, swelling, right tooth rb1 pain 7/10. Has a history of abscess in his mouth. NKA, No medications. BP 166/118. Transition of care: patient was not received from another setting of care. Onset of symptoms was January 06, 2019. Risk Assessment: Do you want to hurt yourself or someone else? Patient reports no desire to harm self or others. Initial Sepsis Screen: Does the patient meet any 2 criteria? No. Patient's initial sepsis screen is negative. Does the patient have a suspected source of infection? Yes:. Care prior to arrival: None. 12:17 Method Of Arrival: EMS: [facility] 12:17 Acuity: HAIDER 4 rb1 Triage Assessment: 12:17 General: Appears uncomfortable, Behavior is calm, cooperative, Reports fever for. Pain: rb1 Complains of pain in right lower jaw Pain currently is 7 out of 10 on a pain scale. Pain began 1 day ago. EENT: Poor dentition noted. Neuro: Level of Consciousness is awake, alert, obeys commands, Oriented to person, place, time, situation. Cardiovascular: Capillary refill < 3 seconds is brisk in bilateral fingers. Respiratory: Airway is patent Respiratory effort is even, unlabored, Respiratory pattern is regular, symmetrical. GI: Reports nausea. : No signs and/or symptoms were reported regarding the genitourinary system. Derm: Skin is pink, warm \T\ dry. Historical: - Allergies: 12:17 No Known Allergies; rb1 - Home Meds: 12:17 None [Active]; rb1 - PMHx: 12:17 mouth abscess; rb1 - PSHx: 12:17 None; rb1 - Immunization history:: Adult Immunizations up to date. - Social history:: Smoking status: Patient uses tobacco products, smokes one pack cigarettes per day. - Ebola Screening: : Patient negative for fever greater than or equal to 101.5 degrees Fahrenheit, and additional compatible Ebola Virus Disease symptoms. Screenin:17 Abuse screen: Denies threats or abuse. Nutritional screening: No deficits noted. rb1 Tuberculosis screening: No symptoms or risk factors identified. Fall Risk None identified. Assessment: 12:17 General: See triage assessment. rb1 13:15 Reassessment: Patient appears in no apparent distress at this time. No changes from rb1 previously documented assessment. Vital Signs: 12:17 BP 134 / 77; Pulse 76; Resp 19; Temp 98.9(TE); Pulse Ox 95% on R/A; Weight 81.65 kg rb1 (R); Height 6 ft. 0 in. (182.88 cm) (R); Pain 7/10; 13:15 BP 148 / 93; Pulse 87; Resp 17; Temp 98.8(O); Pulse Ox 99% on R/A; Pain 7/10; rb1 12:17 Body Mass Index 24.41 (81.65 kg, 182.88 cm) rb1 ED Course: 12:17 Patient arrived in ED. iw 12:17 Arm band placed on right wrist. rb1 12:17 Patient has correct armband on for positive identification. Bed in low position. Call rb1 light in reach. Side rails up X 1. Pulse ox on. NIBP on. 12:22 Rasheeda Bloom, RN is Primary Nurse. rb1 12:25 Tod Cotton PA is PHCP. cp 12:25 Enrike Reaves MD is Attending Physician. cp 12:25 Triage completed. rb1 12:55 Ozzie Jenkins DDS is Referral Physician. cp 13:24 No provider procedures requiring assistance completed. Patient did not have IV access rb1 during this emergency room visit. Administered Medications: No medications were administered Outcome: 12:56 Discharge ordered by . cp 13:24 Patient left the ED. rb1 13:24 Discharged to home ambulatory. rb1 13:24 Condition: stable 13:24 Discharge instructions given to patient, Instructed on discharge instructions, follow up and referral plans. medication usage, Demonstrated understanding of instructions, follow-up care, medications, Prescriptions given X 2. Signatures: Tamia Vigil RN DESIRE Tod Cotton PA PA cp Rasheeda Bloom RN RN [facility]
== END 2019-01-07 13:24 | disposition home or self-care (01) ==
LOC: ER 12:16
DX: R68.84 Jaw pain (principal); F17.210 Nicotine dependence, cigarettes, uncomplicated
CPT/HCPCS: 99283

== ENCOUNTER 2019-02-15 23:41 | Emergency (ER) | payer SELFPAY ==
--- OUTSIDE RECORDS SUMMARY | 2019-02-15 23:42 | XMS REPORT | Continuity of Care Document ---
:1990 Author Organization [email or web address] Care Team Providers Name Role Phone [email or web address] Unavailable Unavailable Problems No Data Provided for This Section Medications No Data Provided for This Section Allergies, Adverse Reactions, Alerts No Known Medication Allergies Immunizations No Data Provided for This Section Results No Data Provided for This Section Pathology Reports No Data Provided for This Section Diagnostic Reports No Data Provided for This Section Consultation Notes No Data Provided for This Section Discharge Summaries No Data Provided for This Section History and Physicals No Data Provided for This Section Vital Signs No Data Provided for This Section Encounters Location Location Encounter Encounter Reason Attending ADM DC Status Source Details Type Number For Provider Date Date Visit Departed [id number] ROM 10/19 10/19 [facility] [place]. Emergency [address] [facility] Patients Medical [place] Procedures No Data Provided for This Section Assessment and Plan No Data Provided for This Section Plan of Care Plan of Care Date Source Discharge Date 10/19/18 7:13pm 10/19/2018 [facility] Disposition HOME, SELF-CARE Condition at Discharge Stable Instructions/Education Provided Laceration Forms Provided Work/School Excuse Prescriptions See Medication Section Referrals ZHEN JOHANSEN MD Address: [address] [place] [address]. [address] [place] [address] Additional Instructions/Education 1. keep wound clean and dry 2. tylenol and motrin 3. return to ed as needed 4. follow up with plastics doctor in 1-2 days without fail Social History Social History Date Source No social history information 10/19/[address] [facility] Patients available. Medical Center Family History No Data Provided for This Section Advance Directives Order Name Results Value Date Source Advance Directives Advance Directives Directive Response Recorded Date/ Time 10/19/[address] [facility] - Does the patient have an advance directive? Patients Medical Center 11/07/12 8:41pm If yes, is advance directive on file with [facility]? No 11/07/12 8:41pm If not on file with [facility] will patient provide a copy? No 11/07/12 8:41pm Do you have a Directive to Physician? No 10/19/18 5:11pm Do you have a Medical Power of Neuroscientist? No 10/19/18 5:11pm Do you have an [...] patient rights and responsibilities? Yes 10/19/18 5:11pm Functional Status No Data Provided for This Section
--- OUTSIDE RECORDS SUMMARY | 2019-02-15 23:43 | XMS REPORT ---
:1990 [facility] Address [address] [place] [address] Care Team Providers Name Role Phone Unavailable [...] confirmation results will follow. CHEST 1 VIEW [id number] 07:18:[address] [id number] IMAGING REPORTPatient Name : RENAY BAÑUELOS ADate of Service: [id number]: 27 Sex: M Order #: [id number] Room: ERSDOB: 1990 X-Ray Number: [id number] Record Number: [id number] Hospital Number: [id number] Physician: ALMA COBIAN Physician: ALMA COBIAN 1 VIEW PORTABLE 06/21/201810:31 PM:History: Congestion . Cough. Suicidal ideation. Left lung pleurisy.Comparison: 2017Technique: 1 view chestFindings:The cardiomediastinal silhouette is normal. The lungs are clear withoutinfiltrate, effusion, or pneumothorax. The bones are intact.Impression:No acute cardiopulmonary process.Electronically Signed By: Davion Godwin M.D., 06/22/2018 7:16 AMLegally authenticated by CEE KENNEDY 2018-06-22 07:16:10THYROID STIMULATION [id number] 00:16: 00 Test Item Value Reference Range Comments TSH (test code=TSH) 0.46 UIU/ML 0.465-4.68 URINE DRUG [id number] 16:47:00 Test Item Value Reference Range Comments [...] NEGATIVE NEGATIVE PCP (test code=BMTPCP) NEGATIVE NEGATIVE [id number] 16:24:00 Test Item Value Reference Range Comments [...] UAMICRO (test code=UAMICRO) NO HEPATITIS C ANTIBODY [id number] 15:51:00 Test Item Value Reference Range Comments [...] Not intended for non medical purposes. CREATINE [id number] 14:39:00 Test Item Value Reference Range Comments CK (test code=CK) 62 U/L 55-170 LIVER [id number] 14:39:00 Test Item Value Reference Range Comments TOTPROT (test code=TOTPROT) 6.4 G/DL 6.3-8.2 ALBUMIN (test code=ALBSERUM) 4.1 G/DL 3.5-5.0 BILITOT (test code=BILITOT) 0.4 MG/DL 0.2-1.3 BILIDIR (test code=BILIDIR) 0.2 MG/DL 0.0-0.4 AST (test code=AST) 19 U/L 15-46 PHOSALK (test code=PHOSALK) 56 U/L 38-126 ALT (test code=ALT) 26 U/L 13-69 BMP, BASIC METABOLIC [id number] 14:39:00 Test Item Value Reference Range Comments SODIUM (test code=NA) 141 MMOL/L 137-145 K+ (test code=KSERUM) 5.1 MMOL/L 3.5-5.1 PLEASE NOTE NEW REFERENCE RANGE(S) IN EFFECT EFFECTIVE 02/27/2010 - NEW ANALYZER ([employer] 5600) CHLORIDE (test code=CL) 109 MMOL/L 98-107 CO2 (test code=CO2) 29 MMOL/L 22-30 BUN (test code=BUN) 10 MG/DL 9-20 CREA (test code=CREA) 0.9 MG/DL 0.8-1.5 GLUCOSE (test 99 MG/DL 70-99 Fasting glucose normal code=GLUCOSE) <100 MG/DL- [employer] recommendation CALCIUM (test 9.3 MG/DL 8.4-10.2 code=CABLOOD) GFR (test code=GFR) 109 mL/min/1.73m2 A GFR of >90 mL/min/1.73m2 is considered normal. [id number] 14:23:00 Test Item Value Reference Range Comments [...] code=NEUT) 4.3 K/UL 1.2-7.2 CHEST XR 2 [id number] 07:16:[address] [id number] IMAGING REPORTPatient Name: RENAY BAÑUELOS ADate of Service: 85-27-1201Xao: 27 Sex: M Order #: [id number] Room: ERSDOB: 1990 X-Ray Number: [id number] Record Number: [id number] Hospital Number: [id number] Physician: DIOMEDES VOOrdering Physician: Aline VO 2 views 05/16/2018History: Left-sided chest pain, pleurisyComparison: 01/12/2018Cardiac, hilar, and mediastinal structures are normal. Lungs arewell-aerated and clear. No acute bony or soft tissue abnormalities areidentified.Impression:Clear chest.The study was performed on an emergent basis and preliminary report faxedto the Emergency Department by the [facility] Radiology [facility] service nearthe time of the exam.Electronically SignedBy: uGs Gutierrez M.D., 05/16/2018 7:13 AMLegally authenticated by LUIS PINEDA 2018-05-16 07:13:58MONONUCLEOSIS RAPID [id number] 06:04:00 Test Item Value Reference Range Comments LOT # (test code=LOT #) [id number] EXP DATE (test code=EXP DATE) 10-26-2018 POS CNTL (test code=POS CNTL) POSITIVE POSITIVE NEG CNTL (test code=NEG CNTL) NEGATIVE NEGATIVE MONONUCLEOSIS (test code=MONONUC) NEGATIVE NEGATIVE [id number] 05:35:00 Test Item Value Reference Range Comments SODIUM (test code=NA) 140 MMOL/L 137-145 K+ (test code=KSERUM) 4.6 MMOL/L 3.5-5.1 PLEASE NOTE NEW REFERENCE RANGE(S) IN EFFECT EFFECTIVE 02/27/2010 - NEW ANALYZER ([employer] 5600) CHLORIDE (test code=CL) 102 MMOL/L 98-107 CO2 (test code=CO2) 29 MMOL/L 22-30 BUN (test code=BUN) 9 MG/DL 9-20 CREA (test code=CREA) 1.0 MG/DL 0.8-1.5 GLUCOSE (test 90 MG/DL 70-99 Fasting glucose normal code=GLUCOSE) <100 MG/DL- [employer] recommendation CALCIUM (test 9.5 MG/DL 8.4-10.2 code=CABLOOD) TOTPROT (test 6.7 G/DL 6.3-8.2 code=TOTPROT) ALBUMIN (test 4.2 G/DL 3.5-5.0 code=ALBSERUM) BILITOT (test 0.7 MG/DL 0.2-1.3 code=BILITOT) AST (test code=AST) 24 U/L 15-46 PHOSALK (test 74 U/L 38-126 code=PHOSALK) ALT (test code=ALT) 27 U/L 13-69 GFR (test code=GFR) 97 mL/min/1.73m2 A GFR of >90 mL/min/1.73m2 is considered normal. [id number] 05:18:00 Test Item Value Reference Range Comments [...] (test code=NEUT) 6.5 K/UL 1.2-7.2 CT ABDOMEN/PELVIS [id number] 07:27:[address] [id number] IMAGING REPORTPatient Name : RENAY BAÑUELOS of Service: [id number]: 27 Sex: M Order #: [id number] [facility] 1990 [facility] Number: [id number] Record Number: [id number] Hospital Number: [id number] Physician: Ji VOing Physician: BRETT VO ABDOMEN/PELVIS [...] by CEE KENNEDY 2018-04-20 07:25:06BMP, BASIC METABOLIC [id number] 05:53:00 Test Item Value Reference Range Comments [...] 70-99 Fasting glucose normal code=GLUCOSE) <100 MG/DL- [employer] recommendation CALCIUM (test 9.4 MG/DL 8.4-10.2 code=CABLOOD) GFR (test code=GFR) 97 mL/min/1.73m2 A GFR of >90 mL/min/1.73m2 is considered normal. LIVER [id number] 05:53:00 Test Item Value Reference Range Comments TOTPROT (test code=TOTPROT) 6.6 G/DL 6.3-8.2 ALBUMIN (test code=ALBSERUM) 4.2 G/DL 3.5-5.0 BILITOT (test code=BILITOT) 0.3 MG/DL 0.2-1.3 BILIDIR (test code=BILIDIR) 0.0 MG/DL 0.0-0.4 AST (test code=AST) 20 U/L 15-46 PHOSALK (test code=PHOSALK) 54 U/L 38-126 ALT (test code=ALT) 19 U/L 13-69 [id number] 05:53:00 Test Item Value Reference Range Comments LIPASE (test code=LIPA) 128 U/L 23-300 [id number] 05:16:00 Test Item Value Reference Range Comments [...] 10 /LPF BACTERIA (test code=BACTERIA) NEGATIVE NONE [id number] 05:15:00 Test Item Value Reference Range Comments [...] code=BASO%) 0.4 % 0-2 CHEST 1 VIEW [id number] 08:43:[address] [id number] IMAGING REPORTPatient Name : RENAY BAÑUELOS of Service: 34-12-9544Vvi: 27 Sex: M Order #: [id number] Room: QERDOB: 1990 X-Ray Number: [id number] Record Number: [id number] Hospital Number: [id number] Physician: ALMA COBIAN Physician: HO, ALMA SAP PORTABLE CHEST at 0820 hours January 12, 2018:CLINICAL HISTORY: DyspneaTECHNIQUE: One viewFINDINGS: The heart and vascularity are within normal limits and the lungsare clear.The bony thorax is intact.Impression : Normal chestElectronically Signed By: Jus Baker M.D., 01/12/2018 8: 40 AMLegally authenticated by ROSA M Wheeler 2018-01-12 08:40:50CHEST XR 2 [id number] 08:31:[address] [id number] IMAGING REPORTPatient Name: RENAY BAÑUELOS ADate of Service: 50-28-6751Ghg: 27 Sex: M Order #: [id number] Room: ERSDOB: 1990 X-Ray Number: [id number] Record Number: [id number] Hospital Number: [id number] Physician: DIANA DA SILVAOrdering Physician: Mira DA SILVA 2 views 8:00 AMComparisons: 11/25/2015HISTORY: Chest tightness, chest pain and shortness of breath.FINDINGS:Heart size isnormal.There is no focal lung consolidation.There is no definite pleural effusion or pneumothorax identified.IMPRESSION:No acute cardiopulmonary process.Electronically Signed By: Enrike Chaudhary M.D., 11/01/2017 8:29 AMLegally authenticated by SANJUANA GURROLA 2017-11-01 08:29:01TROPOANNA MARIE [id number] 07:58:00 Test Item Value Reference Range Comments TROPER (test code=TROPER) 0.00 ng/ml 0.0-0.08 INTERPRETIVE DATA A POC TROPONIN OF </=0.08 NG/ML IS CONSIDERED NEGATIVE
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
--- NOTE | 2019-02-16 11:22 | EKG ---
Test Date: 2019-02-15 Test Time: 23:49:07 Sfdc Consultant: HAMIDA MEASUREMENT RESULTS: Intervals: Rate: 89 SC: 142 QRSD: 98 QT: 366 QTc: 445 [place]: P: 43 SC: 142 QRS: 0 T: 25 INTERPRETIVE STATEMENTS: Normal sinus rhythm Minimal voltage criteria for LVH, may be normal variant Borderline ECG Compared to ECG 12/07/2018 13:34:52 Left ventricular hypertrophy now present Sinus arrhythmia no longer present Junctional escape complex(es) no longer present Early repolarization no longer present Electronically Signed On 02-16-19 11:21:07 CDT by Kevon Wiggins
== END 2019-02-16 00:08 | disposition home or self-care (01) ==
LOC: ER 23:41
DX: R45.851 Suicidal ideations (principal); F33.9 Major depressive disorder, recurrent, unspecified; F17.210 Nicotine dependence, cigarettes, uncomplicated
CPT/HCPCS: 93005; 99283

== ENCOUNTER 2020-07-24 05:48 | Emergency (ER) | payer OTHER, SELFPAY ==
--- OUTSIDE RECORDS SUMMARY | 2020-07-24 05:50 | XMS REPORT | Continuity of Care Document ---
:1990 Author Organization [facility] t Address [address] [place] [address] Care Team Providers Name Role Phone NO Primary Care Physician Unavailable Problems This patient has no known problems. Allergies, Adverse Reactions, Alerts This patient has no known allergies or adverse reactions. Medications This patient has no known medications. Procedures This patient has no known procedures. Encounters Start End Encounter Admission Attending Care Care Encounter Source Date/Time Date/Time Type Type Clinicians Facility Department ID 2018-10-19 2018-10-19 Departed [facility] [id number] 6 [facility]. 16:47:00 19:13:00 Emergency 27 Luke s - Room Patient [facility] Results Test Description Test Time Test Comments Results Result Comments Source SYPHILIS (T. PALLIDUM) 2018-06-22 22:43:00 Test Item Value Reference Range Interpretation Comme nts SYPHIGG (test code = SYPHIGG) NONREACTIVE NONREACTIVE Spyhilis IGG is a screening test only. All REACTIVE results abundio be confirmed by additional test ing. ER SCREEN FOR HIV 12:38:00 Test Item Value Reference Range Interpretation Comments HIV 1/2 AB (test NONREACTIVE NONREACTIVE This test i s used for code = SCRN HIV) SCREENING p urposes only. All reactive re sults are prelimenary and confirmation re sults will follow. CHEST 1 VIEW [id number] 07:18:[address] [id number] IMAGING REPORTPatient Name: RENAY BAÑUELOS ADate of Service: [id number]: 27 Sex: M Order #: [id number] Room: ERSDOB: 1990 X-Ray Number: [id number] Record Number: [id number] Hospital Number: [id number] Physician: ALMA COBIAN Physician: ALMA COBIAN 1 VIEW PORTABLE 06/21/201810:31 PM:History: Congestion . Cough. Suicidal ideation. Left lung pleurisy.Comparison: 05/16/2018Technique: 1 view chestFindings:The cardiomediastinal silhouette is normal. The lungs are clear withoutinfiltrate, effusion, or pneumothorax. The bones are intact.Impression:No acute cardiopulmonary process.Electronically Signed By: Davion Godwin M.D., 06/22/2018 7:16 AMLegally authenticated by CEE KENNEDY 2018-06-22 07:16:10THYROID STIMULATION [id number] 00:16:00 Test Item Value Reference Range Interpretation Comments TSH (test code = TSH) 0.46 UIU/ML 0.465-4.68 L URINE DRUG [id number] 16:47:00 Test Item Value Reference Range Interpretation Comments AMPHET (test code = NEGATIVE NEGATIVE This is an unconfirmed BAMP) screening. Res ult are to be used for medical purposes (treat ment) only. Not inte nded for non-medical pur poses. Cut-off concent ration for a positive result for each drug: Amphetamine - 1 ,000 ng/ml Barbitura te - 200 ng/ml Benzodiaz epine - 200 ng/ml Canna binoids - 50 ng/ml Coca ine - 300 ng/ml Opiat es - 300 ng/ml PCP - 25 ng/ml BARBITURATES (test NEGATIVE NEGATIVE code = BBAR) BENZO (test code = NEGATIVE NEGATIVE BBENZ) CANNABS (test code = POSITIVE NEGATIVE A BCANN) COCAINE (test code = NEGATIVE NEGATIVE BCOC) OPIATES (test code = NEGATIVE NEGATIVE BOPI) PCP (test code = NEGATIVE NEGATIVE BMTPCP) [id number] 16:24:00 Test Item Value Reference Range Interpretation Comments GLUCOSE (test code = URGLU) NEGATIVE MG/DL NEG-100 BILIRUBN (test code = URBILI) NEGATIVE NEGATIVE KETONE (test code = URKET) NEGATIVE MG/DL NEGATIVE BLOOD (test code = URBLD) NEGATIVE UR PH (test code = URPH) 6.5 5.0-7.5 PROTEIN (test code = URPRO) NEGATIVE MG/DL NEGATIVE NITRITES (test code = URNIT) NEGATIVE NEGATIVE UROBILINGEN (test code = 0.2 EU/DL 0.2-1.0 URURO) LEUKOCYT (test code = URLEU) NEGATIVE NEGATIVE UA COLOR (test code = UA YELLOW YELLOW COLOR) CLARITY (test code = CLARITY) CLEAR CLEAR SP GRAV (test code = URSPGRAV) 1.021 1.000-1.025 UAMICRO (test code = UAMICRO) NO HEPATITIS C ANTIBODY [id number] 15:51:00 Test Item Value Reference Range Interpretation Comments SCRN HCV (test code NEGATIVE NEGATIVE Hepatiti s C Antibody test = SCRN HCV) is for screenin g purposes only. All react reed will be confirmed by additional test ing. BLOOD ALCOHOL (ETOH)2018-06-21 14:39:00 Test Item Value Reference Range Interpretation Comments ALCOHOL BLOOD LEVEL <10 MG/DL 0-10 Results are to be used (test code = ALC BLD) for me dical purposes (treatment) onl y. Not intended for no n medical purpose s. CREATINE [id number] 14:39:00 Test Item Value Reference Range Interpretation Comments CK (test code = CK) 62 U/L 55-170 LIVER [id number] 14:39:00 Test Item Value Reference Range Interpretation Comments TOTPROT (test code = TOTPROT) 6.4 G/DL 6.3-8.2 ALBUMIN (test code = ALBSERUM) 4.1 G/DL 3.5-5.0 BILITOT (test code = BILITOT) 0.4 MG/DL 0.2-1.3 BILIDIR (test code = BILIDIR) 0.2 MG/DL 0.0-0.4 AST (test code = AST) 19 U/L 15-46 PHOSALK (test code = PHOSALK) 56 U/L 38-126 ALT (test code = ALT) 26 U/L 13-69 BMP, BASIC METABOLIC [id number] 14:39:00 Test Item Value Reference Range Interpretation Comments SODIUM (test code = 141 MMOL/L 137-145 NA) K+ (test code = 5.1 MMOL/L 3.5-5.1 PLEASE NOTE NEW KSERUM) REFERENCE RANGE (S) IN EFFECT EFFECTIVE 010 - NEW ANALYZER (V ITROS 5600) CHLORIDE (test code 109 MMOL/L 98-107 H = CL) CO2 (test code = 29 MMOL/L 22-30 CO2) BUN (test code = 10 MG/DL 9-20 BUN) CREA (test code = 0.9 MG/DL 0.8-1.5 CREA) GLUCOSE (test code 99 MG/DL 70-99 Fasting glucose = GLUCOSE) normal <100 MG/ DL- [employer] recommendation* * CALCIUM (test code 9.3 MG/DL 8.4-10.2 = CABLOOD) GFR (test code = 109 A GFR of >9 0 GFR) mL/min/1.73m2 mL/min/1.73m2 is considered norm al. [id number] 14:23:00 Test Item Value Reference Range Interpretation Comments WBC (test code = 7.9 K/UL 3.5-10.9 WBC) RBC (test code = 5.17 M/UL 4.3-5.7 RBC) HGB (test code = 15.6 G/DL 13.0-17.9 HGB) HCT (test code = 47.0 % 38-52 HCT) MCV (test code = 90.9 FL 80-98 MCV) MCH (test code = 30.2 PG 28-32 MCH) MCHC (test code = 33.2 G/DL 32.5-36.5 MCHC) RDW (test code = 13.2 % 11.5-14.5 RDW) PLT (test code = 285 K/UL 150-450 PLT) MPV (test code = 10.1 FL 7.4-10.4 MPV) MANDIFF (test code = NO MANDIFF) SCAN (test code = NO SCAN) NEUT% (test code = 54.4 % 40-75 NEUT%) LYMPH% (test code = 26.8 % 24-44 LYMPH%) MONO% (test code = 7.8 % 0-13 MONO%) EOS% (test code = 9.5 % 0-4 H EOS%) BASO % (test code = 1.0 % 0-2 BASO%) IG (test code = IG) 0 % 0-1 IG% (test code = 0.5 % 0-1 IG% = Metam yelocytes, IG%) Myelocytes, and Promyelocytes. (Immature neutr ophils not including " bands".) > 3% IG indic ates risk of sepsis NRBC% (test code = 0 /100 WBC NRBC%) ABS NEUT (test code 4.3 K/UL 1.2-7.2 = NEUT) CHEST XR 2 [id number] 07:16:[address] [id number] IMAGING REPORTPatient Name: RENAY BAÑUELOSte of Service: [id number]: 27 Sex: M Order #: [id number] [facility] 1990 X-Ray Number: [id number] Record Number: [id number] Hospital Number: [id number] Physician: Ji VOing Physician: Aline VO 2 views 05/16/2018History: Left-sided chest pain, pleurisyComparison: 01/12/2018Cardiac, hilar, and mediastinal structures are normal. Lungs arewell-aerated and clear. No acute bony or soft tissue abnormalities areidentified.Impression:Clear chest.The study was performed on an emergent basis and preliminary report faxedto the Emergency Department by the [facility] service nearthe time of the exam.Electronically Signed By: Gus Gutierrez M.D., 05/16/2018 7:13 AMLegally authenticated by LUIS PINEDA 2018-05-16 07:13:58MONONUCLEOSIS RAPID [id number] 06:04:00 Test Item Value Reference Range Interpretation Comments LOT # (test code = LOT #) [id number] EXP DATE (test code = EXP 10-26-2018) POS CNTL (test code = POS POSITIVE POSITIVE A CNTL) NEG CNTL (test code = NEG NEGATIVE NEGATIVE CNTL) MONONUCLEOSIS (test code = NEGATIVE NEGATIVE MONONUC) [id number] 05:35:00 Test Item Value Reference Range Interpretation Comments SODIUM (test code = 140 MMOL/L 137-145 NA) K+ (test code = 4.6 MMOL/L 3.5-5.1 PLEASE NOTE NEW KSERUM) REFERENCE RANGE (S) IN EFFECT EFFECTIVE 010 - NEW ANALYZER (V ITROS 5600) CHLORIDE (test code 102 MMOL/L 98-107 = CL) CO2 (test code = 29 MMOL/L 22-30 CO2) BUN (test code = 9 MG/DL 9-20 BUN) CREA (test code = 1.0 MG/DL 0.8-1.5 CREA) GLUCOSE (test code 90 MG/DL 70-99 Fasting glucose = GLUCOSE) normal <100 MG/ DL- [employer] recommendation* * CALCIUM (test code 9.5 MG/DL 8.4-10.2 = CABLOOD) TOTPROT (test code 6.7 G/DL 6.3-8.2 = TOTPROT) ALBUMIN (test code 4.2 G/DL 3.5-5.0 = ALBSERUM) BILITOT (test code 0.7 MG/DL 0.2-1.3 = BILITOT) AST (test code = 24 U/L 15-46 AST) PHOSALK (test code 74 U/L 38-126 = PHOSALK) ALT (test code = 27 U/L 13-69 ALT) GFR (test code = 97 A GFR of >9 0 GFR) mL/min/1.73m2 mL/min/1.73m2 is considered norm al. [id number] 05:18:00 Test Item Value Reference Range Interpretation Comments WBC (test code = 9.7 K/UL 3.5-10.9 WBC) RBC (test code = 5.64 M/UL 4.3-5.7 RBC) HGB (test code = 16.7 G/DL 13.0-17.9 HGB) HCT (test code = 49.7 % 38-52 HCT) MCV (test code = 88.1 FL 80-98 MCV) MCH (test code = 29.6 PG 28-32 MCH) MCHC (test code = 33.6 G/DL 32.5-36.5 MCHC) RDW (test code = 13.4 % 11.5-14.5 RDW) PLT (test code = 293 K/UL 150-450 PLT) MPV (test code = 9.6 FL 7.4-10.4 MPV) MANDIFF (test code = NO MANDIFF) SCAN (test code = NO SCAN) NEUT% (test code = 66.9 % 40-75 NEUT%) LYMPH% (test code = 20.1 % 24-44 L LYMPH%) MONO% (test code = 11.2 % 0-13 MONO%) EOS% (test code = 1.0 % 0-4 EOS%) BASO % (test code = 0.4 % 0-2 BASO%) IG (test code = IG) 0 % 0-1 IG% (test code = 0.4 % 0-1 IG% = Metam yelocytes, IG%) Myelocytes, and Promyelocytes. (Immature neutr ophils not including " bands".) > 3% IG indic ates risk of sepsis NRBC% (test code = 0 /100 WBC NRBC%) ABS NEUT (test code 6.5 K/UL 1.2-7.2 = NEUT) CT ABDOMEN/PELVIS [id number] 07:27:[address] [id number] IMAGING REPORTPatient Name: RENAY BAÑUELOS ADate of Service: [id number]: 27 Sex: M Order #: [id number] [facility] 1990 [facility] Number: [id number] Record Number: [id number] Hospital Number: [id number] Physician: Ji VOing Physician: BRETT VO ABDOMEN/PELVIS WITHOUT 04/20/20186:01 AMHISTORY: FLANK PAIN . Right-sided abdominal pain with vomiting. Rightflank pain.COMPARISON: NoneTECHNIQUE: Unenhanced CT imaging of the abdomen and pelvis. This CT examwas performed using one or more of the following dose reduction techniques:Automated exposure control, adjustment of the mAand/or KV according topatient size, or use of iterative reconstruction technique.FINDINGS:The lung bases are clear. The heart size [...] by CEE KENNEDY 2018-04-20 07:25:06BMP, BASIC METABOLIC [id number] 05:53:00 Test Item Value Reference Range Interpretation Comments SODIUM (test code = 143 MMOL/L 137-145 NA) K+ (test code = 4.3 MMOL/L 3.5-5.1 PLEASE NOTE NEW KSERUM) REFERENCE RANGE (S) IN EFFECT EFFECTIVE 010 - NEW ANALYZER (V ITROS 5600) CHLORIDE (test code 109 MMOL/L 98-107 H = CL) CO2 (test code = 26 MMOL/L 22-30 CO2) BUN (test code = 10 MG/DL 9-20 BUN) CREA (test code = 1.0 MG/DL 0.8-1.5 CREA) GLUCOSE (test code 84 MG/DL 70-99 Fasting glucose = GLUCOSE) normal <100 MG/ DL- [employer] recommendation* * CALCIUM (test code 9.4 MG/DL 8.4-10.2 = CABLOOD) GFR (test code = 97 A GFR of >9 0 GFR) mL/min/1.73m2 mL/min/1.73m2 is considered norm al. LIVER [id number] 05:53:00 Test Item Value Reference Range Interpretation Comments TOTPROT (test code = TOTPROT) 6.6 G/DL 6.3-8.2 ALBUMIN (test code = ALBSERUM) 4.2 G/DL 3.5-5.0 BILITOT (test code = BILITOT) 0.3 MG/DL 0.2-1.3 BILIDIR (test code = BILIDIR) 0.0 MG/DL 0.0-0.4 AST (test code = AST) 20 U/L 15-46 PHOSALK (test code = PHOSALK) 54 U/L 38-126 ALT (test code = ALT) 19 U/L 13-69 [id number] 05:53:00 Test Item Value Reference Range Interpretation Comments LIPASE (test code = LIPA) 128 U/L 23-300 [id number] 05:16:00 Test Item Value Reference Range Interpretation Comments GLUCOSE (test code = URGLU) NEGATIVE MG/DL NEG-100 BILIRUBN (test code = URBILI) NEGATIVE NEGATIVE KETONE (test code = URKET) NEGATIVE MG/DL NEGATIVE BLOOD (test code = URBLD) NEGATIVE UR PH (test code = URPH) 5.5 5.0-7.5 PROTEIN (test code = URPRO) NEGATIVE MG/DL NEGATIVE NITRITES (test code = URNIT) NEGATIVE NEGATIVE UROBILINGEN (test code = 1.0 EU/DL 0.2-1.0 URURO) LEUKOCYT (test code = URLEU) SMALL NEGATIVE UA COLOR (test code = UA YELLOW YELLOW COLOR) CLARITY (test code = CLARITY) CLEAR CLEAR SP GRAV (test code = URSPGRAV) 1.018 1.000-1.025 UAMICRO (test code = UAMICRO) YES WBC (test code = URWBC) 20 /HPF 0-5 H RBC (test code = URRBC) 0 /HPF 0-2 CASTS (test code = CAST) 1 /LPF 0-3 UR EPI (test code = EPI) 10 /LPF BACTERIA (test code = NEGATIVE NONE BACTERIA) [id number] 05:15:00 Test Item Value Reference Range Interpretation Comments WBC (test code = WBC) 8.9 K/UL 3.5-10.9 RBC (test code = RBC) 4.94 M/UL 4.3-5.7 HGB (test code = HGB) 14.6 G/DL 13.0-17.9 HCT (test code = HCT) 43.3 % 38-52 MCV (test code = MCV) 87.7 FL 80-98 MCH (test code = MCH) 29.6 PG 28-32 MCHC (test code = MCHC) 33.7 G/DL 32.5-36.5 RDW (test code = RDW) 13.2 % 11.5-14.5 PLT (test code = PLT) 251 K/UL 150-450 MPV (test code = MPV) 10.4 FL 7.4-10.4 MANDIFF (test code = MANDIFF) NO SCAN (test code = SCAN) NO NEUT% (test code = NEUT%) 48.9 % 40-75 LYMPH% (test code = LYMPH%) 39.2 % 24-44 MONO% (test code = MONO%) 9.5 % 0-13 EOS% (test code = EOS%) 1.8 % 0-4 BASO % (test code = BASO%) 0.4 % 0-2 CHEST 1 VIEW [id number] 08:43:[address] [id number] IMAGING REPORTPatient Name: RENAY BAÑUELOS of Service: [id number]: 27 Sex: M Order #: [id number] Room: QERDOB: 1990 X-Ray Number: [id number] Record Number: [id number] Hospital Number: [id number] Physician: ALMA COBIAN Physician: ALMA COBIAN PORTABLE CHEST at 0820 hours January 12, 2018:CLINICAL HISTORY: DyspneaTECHNIQUE: One viewFINDINGS: The heart and vascularity are within normal limits and the lungsare clear.The bony thorax is intact.Impression: Normal chestElectronically Signed By: Jus Baker M.D., 01/12/2018 8:40 AMLegally authenticated by ROSA M Wheeler 2018-01-12 08:40:50CHEST XR 2 [id number] 08:31:[address] [id number] IMAGING REPORTPatient Name: RENAY BAÑUELOS of Service: [id number]: 27 Sex: M Order #: [id number] Room: ERSDOB: 1990 X-Ray Number: [id number] Record Number: [id number] Hospital Number: [id number] Physician: Kianna DA SILVA Physician: Mira DA SILVA 2 views 8:00 AMComparisons: 11/25/2015HISTORY: Chest tightness, chest pain and shortness of breath.FINDINGS:Heart size is normal.There is no focal lung consolidation.There is no definite pleural effusion or pneumothorax identified.IMPRESSION:No acute cardiopulmonary process.Electronically Signed By: Enrike Chaudhary M.D., 11/01/2017 8:29 AMLegally authenticated by SANJUANA GURROLA 2017-11-01 08:29:01TROPONILiam [id number] 07:58:00 Test Item Value Reference Range Interpretation Comments TROPER (test code = 0.00 ng/ml 0.0-0.08 TROPER) INTERPRETIVE DATA A POC TROPONIN OF </= 0.08 NG/ML IS CONSIDERED NEGA TIVE
--- NOTE | 2020-07-24 07:50 | ER ---
Nurse's Notes [facility] Name: Tevin King Age: 29 yrs Sex: Male : 1990 Arrival Date: 07/24/2020 Time: 06:03 Bed 7 Private MD: Diagnosis: Acute upper respiratory infection, unspecified;Cough;Malaise and fatigue Presentation: 07/24 06:30 Chief complaint: Patient states: Flu like symptoms for about 5 days now. Coronavirus sg screen: Client denies travel out of the [place] in the last 14 days. chills, fever, muscle pain, runny nose, Client presents with at least one sign or symptom that may indicate coronavirus-19. Standard/surgical mask placed on the client. Provider contacted for isolation considerations. Ebola Screen: Patient negative for fever greater than or equal to 101.5 degrees Fahrenheit, and additional compatible Ebola Virus Disease symptoms Patient denies exposure to infectious person. Patient denies travel to an Ebola-affected area in the 21 days before illness onset. No symptoms or risks identified at this time. Initial Sepsis Screen: Does the patient meet any 2 criteria? No. Patient's initial sepsis screen is negative. Does the patient have a suspected source of infection? No. Patient's initial sepsis screen is negative. Risk Assessment: Do you want to hurt yourself or someone else? Patient reports no desire to harm self or others. Onset of symptoms was July 24, 2020. Care prior to arrival: None. Transition of care: patient was not received from another setting of care. 06:30 Method Of Arrival: Ambulatory sg 06:30 Acuity: HAIDER 4 sg 06:33 Note was COVID tested on 07/22/2020, reports was told the results would take about 4-5 sg days so came here to be seen for flu like symptoms. Triage Assessment: 07:00 General: Appears in no apparent distress. comfortable, Behavior is calm, cooperative, bp appropriate for age. Pain: Complains of pain in SORE THROAT. EENT: Reports nasal discharge. Neuro: No deficits noted. Cardiovascular: No deficits noted. Respiratory: No deficits noted. GI: No signs and/or symptoms were reported involving the gastrointestinal system. : No signs and/or symptoms were reported regarding the genitourinary system. Derm: No deficits noted. Musculoskeletal: No deficits noted. Historical: - Allergies: 06:35 Hydrogen Peroxide; sg - PMHx: 06:35 mouth abscess; sg - PSHx: 06:35 dental surgery; right femur; sg - Immunization history:: Adult Immunizations up to date. - Social history:: Smoking status: Patient denies any tobacco usage or history of. - Family history:: not pertinent. Screenin:35 Fall Risk None identified. mg2 07:00 Abuse screen: Denies threats or abuse. Denies injuries from another. Nutritional bp screening: No deficits noted. Tuberculosis screening: No symptoms or risk factors identified. Fall Risk None identified. 07:23 Abuse screen: Denies threats or abuse. Denies injuries from another. Nutritional mg2 screening: No deficits noted. Tuberculosis screening: No symptoms or risk factors identified. Assessment: 06:28 General: Appears in no apparent distress. comfortable. Pain: Complains of pain in mg2 throat. Neuro: Level of Consciousness is awake, alert, obeys commands, Oriented to person, place, time, situation. EENT: Reports sore throat. 07:00 General: SEE TRIAGE NOTE. bp 08:00 Reassessment: PT D/C HOME AMBULATORY, DX WITH ACUTE URI. bp Vital Signs: 07:36 BP 143 / 94; Pulse 70; Resp 17; Temp 97.8; Pulse Ox 100% ; bp ED Course: 06:03 Patient arrived in ED. cl3 06:30 Arm band placed on. sg 06:31 Tod Zafar MD is Attending Physician. jonathan 06:35 Triage completed. sg 06:43 COVID swab sent to lab. Flu and/or RSV swab sent to lab. Strep swab sent to lab. ar5 07:00 Patient has correct armband on for positive identification. Bed in low position. Call bp light in reach. Side rails up X2. 07:07 Josesito Wills, RN is Primary Nurse. mg2 08:00 No provider procedures requiring assistance completed. Patient did not have IV access bp during this emergency room visit. Administered Medications: No medications were administered Outcome: 07:50 Discharge ordered by . jonathan 08:26 Discharged to home ambulatory, with family. bp 08:26 Condition: stable 08:26 Discharge instructions given to patient, Instructed on discharge instructions, follow up and referral plans. Demonstrated understanding of instructions, follow-up care, medications, Prescriptions given X 3. 08:27 Patient left the ED. bp Addendum: 07/25/2020 18:27 Addendum: COVID-19 Result: Negative result given to RN to notify pt. Attempted to i w contact pt regarding negative COVID-19 swab results. Unable to leave voice mail due to the number provided was either not a working number, the voice mail has not been set up, or the voice mailbox is full.. Signatures: Andrea Delcid RN RN sg Anderson, Corey, MD MD cha Williams, Irene, RN RN Tevin Acevedo RN RN bp Gardose, Michele, RN RN [facility] [place] Kathi Mcguire ar5 Hector Posey cl3 Corrections: (The following items were deleted from the chart) 07/24 06:37 06:30 Acuity: HAIDER 3 [facility] 07:41 07:36 Resp 17bpm; Pulse Ox 100%; Temp 97.8F; bp bp
--- NOTE | 2020-07-24 07:50 | EDPHYS ---
Physician Documentation [facility] Name: Tevin King Age: 29 yrs Sex: Male : 1990 Arrival Date: 07/24/2020 Time: 06:03 Bed 7 Private MD: ED Physician Tod Zafar HPI: 07/24 07:46 This 29 yrs old Male presents to ER via Ambulatory with complaints of Flu jonathan Symptoms. 07:46 The patient has shortness of breath at rest, with light activity. Onset: The jonathan symptoms/episode began/occurred 2 day(s) ago. Duration: The symptoms are continuous, and are steadily getting worse. The patient's shortness of breath is aggravated by coughing. The patient or guardian reports cough, described as mild, flu symptoms, myalgias. Associated signs and symptoms: Pertinent positives: non-productive cough, fever. Associated signs and symptoms: Pertinent positives: rhinorrhea, sore throat. Severity of symptoms: At their worst the symptoms were mild moderate in the emergency department the symptoms are unchanged. Historical: - Allergies: 06:35 Hydrogen Peroxide; sg - PMHx: 06:35 mouth abscess; sg - PSHx: 06:35 dental surgery; right femur; sg - Immunization history:: Adult Immunizations up to date. - Social history:: Smoking status: Patient denies any tobacco usage or history of. - Family history:: not pertinent. ROS: 07:46 Constitutional: Negative for fever, chills, and weight loss, Eyes: Negative for injury, jonathan pain, redness, and discharge, ENT: Negative for injury, pain, and discharge, Neck: Negative for injury, pain, and swelling, Cardiovascular: Negative for chest pain, palpitations, and edema, Abdomen/GI: Negative for abdominal pain, nausea, vomiting, diarrhea, and constipation, Back: Negative for injury and pain, : Negative for injury, bleeding, discharge, and swelling, MS/Extremity: Negative for injury and deformity, Skin: Negative for injury, rash, and discoloration, Neuro: Negative for headache, weakness, numbness, tingling, and seizure, Psych: Negative for depression, anxiety, suicide ideation, homicidal ideation, and hallucinations, Allergy/Immunology: Negative for hives, rash, and allergies, Endocrine: Negative for neck swelling, polydipsia, polyuria, polyphagia, and marked weight changes, Hematologic/Lymphatic: Negative for swollen nodes, abnormal bleeding, and unusual bruising. 07:46 Respiratory: Positive for cough, "sounds productive", shortness of breath, on exertion. Exam: 07:46 Constitutional: This is a well developed, well nourished patient who is awake, alert, jonathan and in no acute distress. Head/Face: Normocephalic, atraumatic. Eyes: Pupils equal round and reactive to light, extra-ocular motions intact. Lids and lashes normal. Conjunctiva and sclera are non-icteric and not injected. Cornea within normal limits. Periorbital areas with no swelling, redness, or edema. ENT: Nares patent. No nasal discharge, no septal abnormalities noted. Tympanic membranes are normal and external auditory canals are clear. Oropharynx with no redness, swelling, or masses, exudates, or evidence of obstruction, uvula midline. Mucous membranes moist. Neck: Trachea midline, no thyromegaly or masses palpated, and no cervical lymphadenopathy. Supple, full range of motion without nuchal rigidity, or vertebral point tenderness. No Meningismus. Chest/axilla: Normal chest wall appearance and motion. Nontender with no deformity. No lesions are appreciated. Cardiovascular: Regular rate and rhythm with a normal S1 and S2. No gallops, murmurs, or rubs. Normal PMI, no JVD. No pulse deficits. Abdomen/GI: Soft, non-tender, with normal bowel sounds. No distension or tympany. No guarding or rebound. No evidence of tenderness throughout. Back: No spinal tenderness. No costovertebral tenderness. Full range of motion. Male : Normal genitalia with no discharge or lesions. Skin: Warm, dry with normal turgor. Normal color with no rashes, no lesions, and no evidence of cellulitis. MS/ Extremity: Pulses equal, no cyanosis. Neurovascular intact. Full, normal range of motion. Neuro: Awake and alert, GCS 15, oriented to person, place, time, and situation. Cranial nerves II-XII grossly intact. Motor strength 5/5 in all extremities. Sensory grossly intact. Cerebellar exam normal. Normal gait. Psych: Awake, alert, with orientation to person, place and time. Behavior, mood, and affect are within normal limits. 07:46 Respiratory: the patient does not display signs of respiratory distress, Respirations: normal, Breath sounds: are clear throughout, bronchial sounds, that are mild, are scattered, rhonchi, that are mild, are scattered, stridor, is not appreciated, Respiratory rate: 17 Vital Signs: 07:36 BP 143 / 94; Pulse 70; Resp 17; Temp 97.8; Pulse Ox 100% ; bp MDM: 06:31 Patient medically screened. [facility] 07/24 06:25 Order name: Flu; Complete Time: 07:46 07/24 06:25 Order name: Strep; Complete Time: 07:46 07/24 06:25 Order name: COVID-19 07/24 07:11 Order name: Throat Culture EDMS Administered Medications: No medications were administered Disposition: 07/24/20 07:50 Discharged to Home. Impression: Acute upper respiratory infection, unspecified, Cough, Malaise and fatigue. - Condition is Stable. - Discharge Instructions: Upper Respiratory Infection, Adult, Weakness, Cough, Adult, [id number], Cough, Adult. - Prescriptions for Bromfed DM 2- 30-10 mg/5 mL Oral syrup - take 10 milliliter by ORAL route every 4 hours; 180 milliliter. dexamethasone 2 mg Oral tablet - take 1 tablet by ORAL route 3 times per day; 15 tablet. Pepcid 20 mg Oral Tablet - take 1 tablet by ORAL route every 12 hours for 10 days; 20 tablet. Zithromax 500 mg Oral Tablet - take 1 tablet by ORAL route once daily for 5 days; 5 tablet. - Medication Reconciliation Form, Thank You Letter, Antibiotic Education, Prescription Opioid Use form. - Follow up: Private Physician; When: 2 - 3 days; Reason: Recheck today's complaints, Continuance of care, Re-evaluation by your physician. - Problem is new. - Symptoms have improved. Signatures: Dispatcher [employer] EDMS Andrea Delcid RN RN sg Anderson, Corey, MD MD cha Peltier, Brian RN RN bp Corrections: (The following items were deleted from the chart) 08:27 07:50 07/24/2020 07:50 Discharged to Home. Impression: Acute upper respiratory bp infection, unspecified; Cough; Malaise and fatigue. Condition is Stable. Forms are Medication Reconciliation Form, Thank You Letter, Antibiotic Education, Prescription Opioid Use. Follow up: Private Physician; When: 2 - 3 days; Reason: Recheck today's complaints, Continuance of care, Re-evaluation by your physician. Problem is new. Symptoms have improved. jonathan
[2020-07-24 08:35] VITALS: BP 143/94; TEMP 97.8; O2SAT 100
== END 2020-07-24 08:27 | disposition home or self-care (01) ==
LOC: ER 05:48
DX: J06.9 Acute upper respiratory infection, unspecified (principal); Z20.828 Contact with and (suspected) exposure to other viral communicable diseases; R53.81 Other malaise; R53.83 Other fatigue; Z88.3 Allergy status to other anti-infective agents
CPT/HCPCS: 87070; 87081; 87804; 99283; U0002

== ENCOUNTER 2020-08-14 07:37 | Emergency (ER) | payer SELFPAY ==
--- OUTSIDE RECORDS SUMMARY | 2020-08-14 07:40 | XMS REPORT | Continuity of Care Document ---
:1990 Author Organization [facility] t Address [address] [place] [address] Care Team Providers Name Role Phone NO [...] Clinicians Facility Department ID 2018-10-19 2018-10-[address] [facility] [id number] 6 [facility]. 16:47:00 19:13:00 Emergency 25 Lu s - Room Patient s [facility] Results Test Description Test Time Test [...] re sults will follow. CHEST 1 VIEW [id number] 07:18:[address] [id number] IMAGING REPORTPatient Name: RENAY BAÑUELOS ADate of Service: [id number]: 27 Sex: M Order #: [id number] Room: ERSDOB: 1990 X-Ray Number: [id number] Record Number: [id number] Hospital Number: [id number] Physician: ALMA COBIAN Physician: ALMA COBIAN 1 VIEW PORTABLE 06/21/201810:31 PM:History: Congestion . Cough. Suicidal ideation. Left lung pleurisy.Comparison: 05/16/2018Technique: 1 view chestFindings:The cardiomediastinal silhouette is normal. The lungs are clear withoutinfiltrate, effusion, or pneumothorax. The bones are intact.Impression:No acute cardiopulmonary process.Electronically Signed By: Davion Godwin M.D., 06/22/2018 7:16 AMLegally authenticated by CEE KENNEDY 2018-06-22 07:16:10THYROID STIMULATION [id number] 00:16:00 Test Item Value Reference Range Interpretation Comments TSH (test code = TSH) 0.46 UIU/ML 0.465-4.68 L URINE DRUG [id number] 16:47:00 Test Item Value Reference Range Interpretation [...] PCP (test code = NEGATIVE NEGATIVE BMTPCP) [id number] 16:24:00 Test Item Value Reference Range Interpretation [...] code = UAMICRO) NO HEPATITIS C ANTIBODY [id number] 15:51:00 Test Item Value Reference Range Interpretation [...] for no n medical purpose s. CREATINE [id number] 14:39:00 Test Item Value Reference Range Interpretation Comments CK (test code = CK) 62 U/L 55-170 LIVER [id number] 14:39:00 Test Item Value Reference Range Interpretation [...] ALT) 26 U/L 13-69 BMP, BASIC METABOLIC [id number] 14:39:00 Test Item Value Reference Range Interpretation [...] glucose = GLUCOSE) normal <100 MG/ DL- [employer] recommendation* * CALCIUM (test code 9.3 MG/DL 8.4-10.2 = CABLOOD) GFR (test code = 109 A GFR of >9 0 GFR) mL/min/1.73m2 mL/min/1.73m2 is considered norm al. [id number] 14:23:00 Test Item Value Reference Range Interpretation [...] K/UL 1.2-7.2 = NEUT) CHEST XR 2 [id number] 07:16:[address] [id number] IMAGING REPORTPatient Name: RENAY BAÑUELOS ADate of Service: [id number]: 27 Sex: M Order #: [id number] Room: ERSDOB: 1990 X-Ray Number: [id number] Record Number: [id number] Hospital Number: [id number] Physician: Ji VOing Physician: Aline VO 2 [...] authenticated by LUIS PINEDA 2018-05-16 07:13:58MONONUCLEOSIS RAPID [id number] 06:04:00 Test Item Value Reference Range Interpretation Comments LOT # (test code = LOT #) [id number] EXP DATE (test code = EXP 10-26-2018) POS CNTL (test code = POS POSITIVE POSITIVE A CNTL) NEG CNTL (test code = NEG NEGATIVE NEGATIVE CNTL) MONONUCLEOSIS (test code = NEGATIVE NEGATIVE MONONUC) [id number] 05:35:00 Test Item Value Reference Range Interpretation [...] glucose = GLUCOSE) normal <100 MG/ DL- [employer] recommendation* * CALCIUM (test [...] GFR) mL/min/1.73m2 mL/min/1.73m2 is considered norm al. [id number] 05:18:00 Test Item Value Reference Range Interpretation [...] 6.5 K/UL 1.2-7.2 = NEUT) CT ABDOMEN/PELVIS [id number] 07:27:00BA[address] StreetIAGNOSTIC IMAGING REPORTPatient Name: RENAY BAÑUELOS ADate of Service: [id number]: 27 Sex: M Order #: [id number] [facility] 1990 X-[facility] Number: [id number] Record Number: [id number] Hospital Number: [id number] Physician: Tere VO Physician: BRETT VO ABDOMEN/PELVIS WITHOUT 04/20/20186:01 AMHISTORY: [...] by CEE KENNEDY 2018-04-20 07:25:06BMP, BASIC METABOLIC [id number] 05:53:00 Test Item Value Reference Range Interpretation [...] glucose = GLUCOSE) normal <100 MG/ DL- [employer] recommendation* * CALCIUM (test code 9.4 MG/DL 8.4-10.2 = CABLOOD) GFR (test code = 97 A GFR of >9 0 GFR) mL/min/1.73m2 mL/min/1.73m2 is considered norm al. LIVER [id number] 05:53:00 Test Item Value Reference Range Interpretation [...] (test code = ALT) 19 U/L 13-69 [id number] 05:53:00 Test Item Value Reference Range Interpretation Comments LIPASE (test code = LIPA) 128 U/L 23-300 [id number] 05:16:00 Test Item Value Reference Range Interpretation [...] BACTERIA (test code = NEGATIVE NONE BACTERIA) [id number] 05:15:00 Test Item Value Reference Range Interpretation [...] BASO%) 0.4 % 0-2 CHEST 1 VIEW [id number] 08:43:[address] [id number] IMAGING REPORTPatient Name: RENAY BAÑUELOS of Service: [id number]: 27 Sex: M Order #: [id number] Room: QERDOB: 1990 X-Ray Number: [id number] Record Number: [id number] Hospital Number: [id number] Physician: ALMA COBIAN Physician: ALMA COBIAN PORTABLE CHEST at 0820 hours January 12, 2018:CLINICAL HISTORY: DyspneaTECHNIQUE: One viewFINDINGS: The heart and vascularity are within normal limits and the lungsare clear.The bony thorax is intact.Impression: Normal chestElectronically Signed By: Jus Baker M.D., 01/12/2018 8:40 AMLegally authenticated by ROSA M Wheeler 2018-01-12 08:40:50CHEST XR 2 [id number] 08:31:[address] [id number] IMAGING REPORTPatient Name: RENAY BAÑUELOS of Service: [id number]: 27 Sex: M Order #: [id number] Room: ERSDOB: 1990 X-Ray Number: [id number] Record Number: [id number] Hospital Number: [id number] Physician: Kianna DA SILVA Physician: Mira DA SILVA 2 views 8:00 AMComparisons: 11/25/2015HISTORY: Chest tightness, chest pain and shortness of breath.FINDINGS:Heart size is normal.There is no focal lung consolidation.There is no definite pleural effusion or pneumothorax identified.IMPRESSION:No acute cardiopulmonary process.Electronically Signed By: Enrike Chaudhary M.D., 11/01/2017 8:29 AMLegally authenticated by SANJUANA GURROLA 2017-11-01 08:29:01TROPOANNA MARIE [id number] 07:58:00 Test Item Value Reference Range Interpretation Comments TROPER (test code = 0.00 ng/ml 0.0-0.08 TROPER) INTERPRETIVE DATA A POC TROPONIN OF </= 0.08 NG/ML IS CONSIDERED NEGA TIVE
[2020-08-14] MEDS ORDERED: HYDROCODONE/APAP 10/325 TAB ONE (08:12)
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
[2020-08-14 09:20] VITALS: TEMP 98.9; O2SAT 100
== END 2020-08-14 09:15 | disposition home or self-care (01) ==
LOC: ER 07:37
DX: Z48.01 Encounter for change or removal of surgical wound dressing (principal); F17.210 Nicotine dependence, cigarettes, uncomplicated; T22.10XA Burn of first degree of shoulder and upper limb, except wrist and hand, unspecified site, initial encounter; T21.10XA Burn of first degree of trunk, unspecified site, initial encounter
CPT/HCPCS: 99284

== ENCOUNTER 2020-08-23 08:05 | Emergency (ER) | payer SELFPAY ==
--- OUTSIDE RECORDS SUMMARY | 2020-08-23 08:07 | XMS REPORT | Continuity of Care Document ---
:1990 Author Organization [facility] t Address [address] [place] [address] Care Team Providers Name Role Phone NO Primary Care Physician Unavailable Sheldon PHIPPS E Attending Clinician Tuan FOURNIER, Eyad Attending Clinician Room, Therapy [facility] Attending Clinician Unavailable Problems This patient has no known problems. Allergies, Adverse Reactions, Alerts This patient has no known allergies or adverse reactions. Medications This patient has no known medications. Procedures This patient has no known procedures. Encounters Start End Encounter Admission Attending Care Care Encounter Source Date/Time Date/Time Type Type Clinicians Facility Department ID 2020-08-20 2020-08-20 Patient Shannon Chung [id number] 00:00:00 00:00:00 Outreach Dale UNGER [id number] [place] [id number] 2020-08-19 2020-08-19 Hospital Luz Maria Dickerson [id number] 12:09:37 23:59:00 Encounter Tian Unger [id number] [place] [id number] 2020-08-19 2020-08-19 Ancillary Luz Maria Lantigua [id number] 14:12:48 15:12:48 Visit Nya Unger [id number] [id number] 2018-10-19 2018-10-19 Departed [facility] [id number] 16:47:00 19:13:00 Emergency 25 [facility] s - Room [facility] Results Test Description Test Time Test [...] re sults will follow. CHEST 1 VIEW [id number] 07:18:[address] [id number] IMAGING REPORTPatient Name: RENAY BAÑUELOS of Service: [id number]: 27 Sex: M Order #: [id number] [facility] 1990 [facility] Number: [id number] Record Number: [id number] Hospital Number: [id number] Physician: ALMA COBIAN Physician: ALMA COBIAN 1 VIEW PORTABLE 06/21/201810:31 PM:History: Congestion . Cough. Suicidal ideation. Left lung pleurisy.Comparison: 05/16/2018Technique: 1 view chestFindings:The cardiomediastinal silhouette is normal. The lungs are clear withoutinfiltrate, effusion, or pneumothorax. The bones are intact.Impression:No acute cardiopulmonary process.Electronically Signed By: Davion Godwin M.D., 06/22/2018 7:16 AMLegally authenticated by CEE KENNEDY 2018-06-22 07:16:10THYROID STIMULATION [id number] 00:16:00 Test Item Value Reference Range Interpretation Comments TSH (test code = TSH) 0.46 UIU/ML 0.465-4.68 L URINE DRUG [id number] 16:47:00 Test Item Value Reference Range Interpretation [...] PCP (test code = NEGATIVE NEGATIVE BMTPCP) [id number] 16:24:00 Test Item Value Reference Range Interpretation [...] code = UAMICRO) NO HEPATITIS C ANTIBODY [id number] 15:51:00 Test Item Value Reference Range Interpretation [...] for no n medical purpose s. CREATINE [id number] 14:39:00 Test Item Value Reference Range Interpretation Comments CK (test code = CK) 62 U/L 55-170 LIVER [id number] 14:39:00 Test Item Value Reference Range Interpretation [...] ALT) 26 U/L 13-69 BMP, BASIC METABOLIC [id number] 14:39:00 Test Item Value Reference Range Interpretation [...] glucose = GLUCOSE) normal <100 MG/ DL- [employer] recommendation* * CALCIUM (test code 9.3 MG/DL 8.4-10.2 = CABLOOD) GFR (test code = 109 A GFR of >9 0 GFR) mL/min/1.73m2 mL/min/1.73m2 is considered norm al. [id number] 14:23:00 Test Item Value Reference Range Interpretation [...] K/UL 1.2-7.2 = NEUT) CHEST XR 2 [id number] 07:16:[address] [id number] IMAGING REPORTPatient Name: RENAY BAÑUELOSramin of Service: [id number]: 27 Sex: M Order #: [id number] [facility] 1990 X-[facility] Number: [id number] Record Number: [id number] Hospital Number: [id number] Physician: Tere VO Physician: Aline VO 2 views 05/16/2018History: Left-sided chest pain, pleurisyComparison: 01/12/2018Cardiac, hilar, and mediastinal structures are normal. Lungs arewell-aerated and clear. No acute bony or soft tissue abnormalities areidentified.Impression:Clear chest.The study was performed on an emergent basis and preliminary report faxedto the Emergency Department by the [facility] service nearthe time of the exam.Electronically Signed By: Gus Gutierrez M.D., 05/16/2018 7:13 AMLegally authenticated by LUIS PINEDA 2018-05-16 07:13:58MONONUCLEOSIS RAPID [id number] 06:04:00 Test Item Value Reference Range Interpretation Comments LOT # (test code = LOT #) [id number] EXP DATE (test code = EXP 10-26-2018 DATE) POS CNTL (test code = POS POSITIVE POSITIVE A CNTL) NEG CNTL (test code = NEG NEGATIVE NEGATIVE CNTL) MONONUCLEOSIS (test code = NEGATIVE NEGATIVE MONONUC) [id number] 05:35:00 Test Item Value Reference Range Interpretation [...] glucose = GLUCOSE) normal <100 MG/ DL- [employer] recommendation* * CALCIUM (test [...] GFR) mL/min/1.73m2 mL/min/1.73m2 is considered norm al. [id number] 05:18:00 Test Item Value Reference Range Interpretation [...] 6.5 K/UL 1.2-7.2 = NEUT) CT ABDOMEN/PELVIS [id number] 07:27:00[place] [address] [place] [address] [id number] IMAGING REPORTPatient Name: RENAY BAÑUELOSte of Service: [id number]: 27 Sex: M Order #: [id number] Room: ERSDOB: 1990 X-Ray Number: [id number] Record Number: [id number] Hospital Number: [id number] Physician: DIOMEDES VOOrdering Physician: BRETT VO ABDOMEN/PELVIS WITHOUT 04/20/20186:01 AMHISTORY: [...] by CEE KENNEDY 2018-04-20 07:25:06BMP, BASIC METABOLIC [id number] 05:53:00 Test Item Value Reference Range Interpretation [...] glucose = GLUCOSE) normal <100 MG/ DL- [employer] recommendation* * CALCIUM (test code 9.4 MG/DL 8.4-10.2 = CABLOOD) GFR (test code = 97 A GFR of >9 0 GFR) mL/min/1.73m2 mL/min/1.73m2 is considered norm al. LIVER [id number] 05:53:00 Test Item Value Reference Range Interpretation [...] (test code = ALT) 19 U/L 13-69 [id number] 05:53:00 Test Item Value Reference Range Interpretation Comments LIPASE (test code = LIPA) 128 U/L 23-300 [id number] 05:16:00 Test Item Value Reference Range Interpretation [...] BACTERIA (test code = NEGATIVE NONE BACTERIA) [id number] 05:15:00 Test Item Value Reference Range Interpretation [...] BASO%) 0.4 % 0-2 CHEST 1 VIEW [id number] 08:43:00[address] [id number] IMAGING REPORTPatient Name: RENAY BAÑUELOS ADate of Service: [id number]: 27 Sex: M Order #: [id number] Room: QERDOB: 1990 X-Ray Number: [id number] Record Number: [id number] Hospital Number: [id number] Physician: ALMA COBIAN Physician: ALMA COBIAN PORTABLE CHEST at 0820 hours January 12, 2018:CLINICAL HISTORY: DyspneaTECHNIQUE: One viewFINDINGS: The heart and vascularity are within normal limits and the lungsare clear.The bony thorax is intact.Impression: Normal chestElectronically Signed By: Jus Baker M.D., 01/12/2018 8:40 AMLegally authenticated by ROSA M Wheeler 2018-01-12 08:40:50CHEST XR 2 [id number] 08:31:[address] [id number] IMAGING REPORTPatient Name: RENAY BAÑUELOS of Service: [id number]: 27 Sex: M Order #: [id number] Room: ERSDOB: 1990 X-Ray Number: [id number] Record Number: [id number] Hospital Number: [id number] Physician: Kianna DA SILVA Physician: Mira DA SILVA 2 views 8:00 AMComparisons: 11/25/2015HISTORY: Chest tightness, chest pain and shortness of breath.FINDINGS:Heart size is normal.There is no focal lung consolidation.There is no definite pleural effusion or pneumothorax identified.IMPRESSION:No acute cardiopulmonary process.Electronically Signed By: Enrike Chaudhary M.D., 11/01/2017 8:29 AMLegally authenticated by SANJUANA GURROLA 2017-11-01 08:29:01TROPOANNA MARIE [id number] 07:58:00 Test Item Value Reference Range Interpretation Comments TROPER (test code = 0.00 ng/ml 0.0-0.08 TROPER) INTERPRETIVE DATA A POC TROPONIN OF </= 0.08 NG/ML IS CONSIDERED NEGA TIVE
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
[2020-08-23] MEDS ORDERED: HYDROCODONE/APAP 7.5/325 MG TAB ONE (09:48)
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
[2020-08-23 10:53] VITALS: BP 143/92; TEMP 98.3; O2SAT 100
== END 2020-08-23 10:33 | disposition home or self-care (01) ==
LOC: ER 08:05
DX: Z48.00 Encounter for change or removal of nonsurgical wound dressing (principal); F17.210 Nicotine dependence, cigarettes, uncomplicated
CPT/HCPCS: 99283

== ENCOUNTER 2020-10-29 14:32 | Emergency (ER) | payer SELFPAY ==
--- OUTSIDE RECORDS SUMMARY | 2020-10-29 14:35 | XMS REPORT | Continuity of Care Document ---
:1990 Author Organization [facility] t Address [address] [place] [address] Care Team Providers Name Role Phone NO Primary Care Physician Unavailable Andriy FOURNIER O Attending Clinician Room, [facility] Attending Clinician Unavailable Sheldon PHIPPS E Attending Clinician Eyad Dickerson MD Attending Clinician Problems This patient has no known problems. Allergies, Adverse Reactions, Alerts This patient has no known allergies or adverse reactions. Medications This patient has no known medications. Procedures This patient has no known procedures. Encounters Start End Encounter Admission Attending Care Care Encounter Source Date/Time Date/Time Type Type Clinicians Facility Department ID 2020-08-27 2020-08-27 [facility] Ayaz Ashraf Luz Maria [id number] 12:13:40 23:59:00 Encounter Cornel 350.1.13.10 [facility] 4.2.7.2.686 [id number] 2020-08-27 2020-08-27 Ancillary Room, Luz Maria 1.2.531.223 [id number] 13:53:00 14:53:00 Visit Kristy-Raiza Castillo 350.1.13.10 [facility] 4.2.7.2.686 [id number] 2020-08-26 2020-08-26 Patient Shannon Chung Alise 1.2.840.114 [id number] 00:00:00 00:00:00 Outreach E Ricardo 350.1.13.10 [place] 4.2.7.2.686 [id number] 2020-08-20 2020-08-20 Patient Shannon Chung 1.2.840.114 [id number] 00:00:00 00:00:00 Outreach E CORNEL 350.1.13.10 [facility] 4.2.7.2.686 [id number] 2020-08-19 2020-08-19 Hospital Luz Maria Dickerson 1.2.119.661 [id number] 12:09:37 23:59:00 Encounter Tian Castillo 350.1.13.10 [facility] 4.2.7.2.686 [id number] 2020-08-19 2020-08-19 Ancillary RoomLuz Maria 1.2.364.212 [id number] 14:12:48 15:12:48 Visit Kristy-Raiza Castillo 350.1.13.10 Therapy Tub [facility] 4.2.7.2.686 [id number] 2018-10-19 2018-10-19 Departed [facility] [id number] 16:47:00 19:13:00 Emergency 25 Luke s - Room Patient s [facility] Results Test Description Test Time [...] re sults will follow. CHEST 1 VIEW [id number] 07:18:[address] [address]ZUPUCDVAOL IMAGING REPORTPatient Name: RENAY BAÑUELOS Catherine of Service: [id number]: 27 Sex: M Order #: [id number] Room: ERSDOB: 1990 X-Ray Number: [id number] Record Number: [id number] Hospital Number: [id number] Physician: ALMA COBIAN Physician: ALMA COBIAN 1 VIEW PORTABLE 06/21/201810:31 PM:History: Congestion . Cough. Suicidal ideation. Left lung pleurisy.Comparison: 05/16/2018Technique: 1 view chestFindings:The cardiomediastinal silhouette is normal. The lungs are clear withoutinfiltrate, effusion, or pneumothorax. The bones are intact.Impression:No acute cardiopulmonary process.Electronically Signed By: Davion Godwin M.D., 06/22/2018 7:16 AMLegally authenticated by CEE KENNEDY 2018-06-22 07:16:10THYROID STIMULATION [id number] 00:16:00 Test Item Value Reference Range Interpretation Comments TSH (test code = TSH) 0.46 UIU/ML 0.465-4.68 L URINE DRUG [id number] 16:47:00 Test Item Value Reference Range Interpretation [...] PCP (test code = NEGATIVE NEGATIVE BMTPCP) [id number] 16:24:00 Test Item Value Reference Range Interpretation [...] code = UAMICRO) NO HEPATITIS C ANTIBODY [id number] 15:51:00 Test Item Value Reference Range Interpretation [...] for no n medical purpose s. CREATINE [id number] 14:39:00 Test Item Value Reference Range Interpretation Comments CK (test code = CK) 62 U/L 55-170 LIVER [id number] 14:39:00 Test Item Value Reference Range Interpretation [...] ALT) 26 U/L 13-69 BMP, BASIC METABOLIC [id number] 14:39:00 Test Item Value Reference Range Interpretation [...] glucose = GLUCOSE) normal <100 MG/ DL- [place] [employer] recommendation* * CALCIUM (test code 9.3 MG/DL 8.4-10.2 = CABLOOD) GFR (test code = 109 A GFR of >9 0 GFR) mL/min/1.73m2 mL/min/1.73m2 is considered norm al. [id number] 14:23:00 Test Item Value Reference Range Interpretation [...] K/UL 1.2-7.2 = NEUT) CHEST XR 2 [id number] 07:16:[address] [address]AOHQNTSELG IMAGING REPORTPatient Name: RENAY BAÑUELOSte of Service: [id number]: 27 Sex: M Order #: [id number] [facility] 1990 X-Ray Number: [id number] Record Number: [id number] Hospital Number: [id number] Physician: Ji VOing Physician: Aline VO 2 [...] authenticated by LUIS PINEDA 2018-05-16 07:13:58MONONUCLEOSIS RAPID [id number] 06:04:00 Test Item Value Reference Range Interpretation Comments LOT # (test code = LOT #) [id number] EXP DATE (test code = EXP 10-26-2018 DATE) POS CNTL (test code = POS POSITIVE POSITIVE A CNTL) NEG CNTL (test code = NEG NEGATIVE NEGATIVE CNTL) MONONUCLEOSIS (test code = NEGATIVE NEGATIVE MONONUC) [id number] 05:35:00 Test Item Value Reference Range Interpretation [...] glucose = GLUCOSE) normal <100 MG/ DL- [place] [employer] recommendation* * CALCIUM (test [...] GFR) mL/min/1.73m2 mL/min/1.73m2 is considered norm al. [id number] 05:18:00 Test Item Value Reference Range Interpretation [...] 6.5 K/UL 1.2-7.2 = NEUT) CT ABDOMEN/PELVIS [id number] 07:27:[address] [id number] IMAGING REPORTPatient Name: RENAY BAÑUELOS ADate of Service: [id number]: 27 Sex: M Order #: [id number] [facility] 1990 [facility]-Ray Number: [id number] Record Number: [id number] Hospital Number: [id number] Physician: Tere VO Physician: BRETT VO ABDOMEN/PELVIS [...] by CEE KENNEDY 2018-04-20 07:25:06BMP, BASIC METABOLIC [id number] 05:53:00 Test Item Value Reference Range Interpretation [...] glucose = GLUCOSE) normal <100 MG/ DL- [place] [employer] recommendation* * CALCIUM (test code 9.4 MG/DL 8.4-10.2 = CABLOOD) GFR (test code = 97 A GFR of >9 0 GFR) mL/min/1.73m2 mL/min/1.73m2 is considered norm al. LIVER [id number] 05:53:00 Test Item Value Reference Range Interpretation [...] (test code = ALT) 19 U/L 13-69 [id number] 05:53:00 Test Item Value Reference Range Interpretation Comments LIPASE (test code = LIPA) 128 U/L 23-300 [id number] 05:16:00 Test Item Value Reference Range Interpretation [...] BACTERIA (test code = NEGATIVE NONE BACTERIA) [id number] 05:15:00 Test Item Value Reference Range Interpretation [...] BASO%) 0.4 % 0-2 CHEST 1 VIEW [id number] 08:43:[address] [address]DIAGNOSTIC IMAGING REPORTPatient Name: RENAY BAÑUELOS of Service: [id number]: 27 Sex: M Order #: [id number] Room: QERDOB: 1990 X-Ray Number: [id number] Record Number: [id number] Hospital Number: [id number] Physician: ALMA COBIAN Physician: ALMA COBIAN PORTABLE CHEST at 0820 hours January 12, 2018:CLINICAL HISTORY: DyspneaTECHNIQUE: One viewFINDINGS: The heart and vascularity are within normal limits and the lungsare clear.The bony thorax is intact.Impression: Normal chestElectronically Signed By: Jus aBker M.D., 01/12/2018 8:40 AMLegally authenticated by ROSA M Wheeler 2018-01-12 08:40:50CHEST XR 2 [id number] 08:31:00[address] [place] [id number] IMAGING REPORTPatient Name: RENAY BAÑUELOS of Service: [id number]: 27 Sex: M Order #: [id number] Room: ERSDOB: 1990 X-Ray Number: [id number] Record Number: [id number] Hospital Number: [id number] Physician: Kianna DA SILVA Physician: Mira DA SILVA 2 views 8:00 AMComparisons: 11/25/2015HISTORY: Chest tightness, chest pain and shortness of breath.FINDINGS:Heart size is normal.There is no focal lung consolidation.There is no definite pleural effusion or pneumothorax identified.IMPRESSION:No acute cardiopulmonary process.Electronically Signed By: Enrike Chaudhary M.D., 11/01/2017 8:29 AMLegally authenticated by SANJUANA GURROLA 2017-11-01 08:29:01FERNANDA [id number] 07:58:00 Test Item Value Reference Range Interpretation Comments MELLISA (test code = 0.00 ng/ml 0.0-0.08 TROPALISON) INTERPRETIVE DATA A POC TROPONIN OF </= 0.08 NG/ML IS CONSIDERED NEGA TIVE
[2020-10-29] MEDS ORDERED: FLUORESCEIN SODIUM 1 MG/WRAP ONE (18:13)
[2020-10-29] MEDS ORDERED: TETRACAINE HCL 0.5% 4ML OPTH ONE (18:13)
[2020-10-29] MEDS ORDERED: TETANUS & DIPHTHERIA TOX,ADULT 0.5 ML VIAL ONE (18:14)
--- NOTE | 2020-10-29 18:17 | EDPHYS ---
Physician Documentation [facility] Name: Tevin King Age: 30 yrs Sex: Male : 1990 Arrival Date: 10/29/2020 Time: 14:33 Bed 20 Private MD: ED Physician Randy Keller HPI: 10/29 17:51 This 30 yrs old Male presents to ER via Ambulatory with complaints of Foreign pm1 Body In Eye - left. 17:51 The patient is experiencing foreign body sensation, to the left eye, caused by tin pm1 debris. Onset: The symptoms/episode began/occurred today. Duration: the symptoms are continuous. Alleviated by eye flush. Patient does not utilize any form of vision correction. Severity of symptoms: in the emergency department the symptoms have improved. Patient was drilling the hole for a tin wall and the debris flew into his left eye. Had foreign body sensation, so he flushed his eye and it improved. Historical: - Allergies: 14:57 Hydrogen Peroxide; ll1 - PMHx: 14:57 mouth abscess; ll1 - PSHx: 14:57 None; ll1 - Immunization history:: Flu vaccine is not up to date. - Social history:: Smoking status: Patient reports the use of cigarette tobacco products, smokes one-half pack cigarettes per day. ROS: 17:51 Constitutional: Negative for fever, chills, and weight loss. pm1 17:51 Cardiovascular: Negative for chest pain, palpitations, and edema, Respiratory: Negative for shortness of breath, cough, wheezing, and pleuritic chest pain, Neuro: Negative for headache, weakness, numbness, tingling, and seizure. 17:51 Eyes: Positive for foreign body sensation, pain, of the left eye, Negative for vision loss, visual disturbance. Exam: 17:51 Constitutional: This is a well developed, well nourished patient who is awake, alert, pm1 and in no acute distress. Vital Signs: 14:53 BP 149 / 82; Pulse 70; Resp 17; Temp 98.3; Pulse Ox 100% on R/A; Weight 81.65 kg; ll1 Height 6 ft. 0 in. (182.88 cm); Pain 8/10; 18:24 BP 130 / 84; Pulse 71; Resp 18; Pulse Ox 100% on R/A; bw 14:53 Body Mass Index 24.41 (81.65 kg, 182.88 cm) ll1 MDM: 17:44 Patient medically screened. pm1 18:16 Data reviewed: vital signs. Data interpreted: Pulse oximetry: on room air is 100 %. pm1 Interpretation: normal. Counseling: I had a detailed discussion with the patient and/or guardian regarding: the historical points, exam findings, and any diagnostic results supporting the discharge/admit diagnosis, the need for outpatient follow up, an opthalmologist, to return to the emergency department if symptoms worsen or persist or if there are any questions or concerns that arise at home. 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 Exp: 11/07/2021. Lot #: [id number]. } Route: IM; Site: right deltoid; 18:20 Follow up: Response: No adverse reaction Disposition: 19:00 Co-signature as Attending Physician, Randy Keller MD. rn Disposition: 10/29/20 18:16 Discharged to Home. Impression: Injury of conjunctiva and corneal abrasion without foreign body, left eye. - Condition is Stable. - Discharge Instructions: Corneal Abrasion. - Prescriptions for Erythromycin 5 mg/gram (0.5 %) Ophthalmic Ointment - apply 1 ribbon by OPHTHALMIC route every 8 hours for 7 days; 1 tube. - Medication Reconciliation Form, Thank You Letter, Antibiotic Education, Prescription Opioid Use form. - Follow up: Emergency Department; When: As needed; Reason: Worsening of condition. Follow up: Private Physician; When: 2 - 3 days; Reason: Recheck today's complaints, Continuance of care, Re-evaluation by your physician. - Problem is new. - Symptoms have improved. Signatures: Randy Keller MD MD rn Marinas, Patrick, NP TEST SPECIALIST pm1 Barbara Posey RN RN ll1 Julita Lassiter RN RN bw Corrections: (The following items were deleted from the chart) 18:49 18:16 10/29/2020 18:16 Discharged to Home. Impression: Injury of conjunctiva and bw corneal abrasion without foreign body, left eye. Condition is Stable. Forms are Medication Reconciliation Form, Thank You Letter, Antibiotic Education, Prescription Opioid Use. Follow up: Emergency Department; When: As needed; Reason: Worsening of condition. Follow up: Private Physician; When: 2 - 3 days; Reason: Recheck today's complaints, Continuance of care, Re-evaluation by your physician. Problem is new. Symptoms have improved. pm1
--- NOTE | 2020-10-29 18:17 | ER ---
Nurse's Notes [facility] Name: Tevin King Age: 30 yrs Sex: Male : 1990 Arrival Date: 10/29/2020 Time: 14:33 Bed 20 Private MD: Diagnosis: Injury of conjunctiva and corneal abrasion without foreign body, left eye Presentation: 10/29 14:53 Chief complaint: Patient states: States a piece of metal shaving got into L eye today ll1 around 1300. Believes he got it out, but it still painful. Coronavirus screen: Client denies travel out of the [place] in the last 14 days. At this time, the client does not indicate any symptoms associated with coronavirus-19. Ebola Screen: Patient denies travel to an Ebola-affected area in the 21 days before illness onset. Initial Sepsis Screen: Does the patient meet any 2 criteria? No. Patient's initial sepsis screen is negative. Does the patient have a suspected source of infection? Yes: Other: eye pain. Risk Assessment: Do you want to hurt yourself or someone else? Patient reports no desire to harm self or others. Onset of symptoms was October 29, 2020. 14:53 Method Of Arrival: Ambulatory ll1 14:53 Acuity: HAIDER 3 ll1 Triage Assessment: 18:27 General: Appears uncomfortable, Behavior is calm, cooperative, appropriate for age. bw Historical: - Allergies: 14:57 Hydrogen Peroxide; ll1 - PMHx: 14:57 mouth abscess; ll1 - PSHx: 14:57 None; ll1 - Immunization history:: Flu vaccine is not up to date. - Social history:: Smoking status: Patient reports the use of cigarette tobacco products, smokes one-half pack cigarettes per day. Screenin:24 Abuse screen: Denies threats or abuse. Nutritional screening: No deficits noted. bw Tuberculosis screening: No symptoms or risk factors identified. Fall Risk None identified. Assessment: 18:24 Pain: Complains of pain in left eye. Neuro: No deficits noted. Cardiovascular: No bw deficits noted. Respiratory: No deficits noted. GI: No deficits noted. : No deficits noted. EENT: Reports blurred vision in iris of left eye. Derm: No deficits noted. Musculoskeletal: No deficits noted. Vital Signs: 14:53 BP 149 / 82; Pulse 70; Resp 17; Temp 98.3; Pulse Ox 100% on R/A; Weight 81.65 kg; ll1 Height 6 ft. 0 in. (182.88 cm); Pain 8/10; 18:24 BP 130 / 84; Pulse 71; Resp 18; Pulse Ox 100% on R/A; bw 14:53 Body Mass Index 24.41 (81.65 kg, 182.88 cm) ll1 ED Course: 14:33 Patient arrived in ED. am2 14:55 Triage completed. ll1 14:56 Arm band placed on Patient notified of wait time. ll1 17:44 Rafael Salas NP is PHCP. pm1 17:44 Randy Keller MD is Attending Physician. pm1 17:49 Julita Lassiter, DESIRE is Primary Nurse. bw 18:24 Patient has correct armband on for positive identification. Bed in low position. Call bw light in reach. Side rails up X 1. Pulse ox on. NIBP on. 18:24 No provider procedures requiring assistance completed. Patient did not have IV access bw during this emergency room visit. 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 Exp: bw 11/07/2021. Lot #: [id number]. } Route: IM; Site: right deltoid; 18:20 Follow up: Response: No adverse reaction bw Outcome: 18:16 Discharge ordered by MD. pm1 18:24 Discharged to home ambulatory. bw 18:24 Condition: stable 18:24 Discharge instructions given to patient. 18:49 Patient left the ED. bw Signatures: Rafael Salas NP CASING FINISHER AND STUFFER pm1 Zakia Roland am2 Barbara Posey RN RN 1 Julita Lassiter RN RN
== END 2020-10-29 18:49 | disposition home or self-care (01) ==
LOC: ER 14:32
DX: S05.02XA Injury of conjunctiva and corneal abrasion without foreign body, left eye, initial encounter (principal); F17.210 Nicotine dependence, cigarettes, uncomplicated; Z23 Encounter for immunization; Z88.3 Allergy status to other anti-infective agents
CPT/HCPCS: 90471; 90714; 99283

== ENCOUNTER 2021-01-31 17:36 | Emergency (ER) | payer SELFPAY ==
--- OUTSIDE RECORDS SUMMARY | 2021-01-31 17:40 | XMS REPORT | Continuity of Care Document ---
:1990 Author Organization [facility] t Address [address] [place] [address] Care Team Providers Name Role Phone NO Primary Care Physician Unavailable Daren FOURNIER Attending Clinician Room, Therapy Tub Attending Clinician Unavailable Andriy FOURNIER, O Attending Clinician Sheldon PHIPPS, E Attending Clinician Eyad Dickerson MD Attending Clinician Problems Condition Condition Condition Status Onset Resolution Last Treating Co mments Source Name Details Category Date Date Treatment Clinician Date Burn Burn Disease Active Univers 1-18 ity of 00:00: [facility] Allergies, Adverse Reactions, Alerts Allergy Allergy Status Severity Reaction(s) Onset Inactive Treating Comm ents Source Name Type Date Date Clinician Hydrogen Propensi Active Rash Univer s Peroxide ty to 1-21 ity of adverse 00:00: [place] reaction 00 Medical s Branch Social History Social Habit Start Date Stop Date Quantity Comments Source Exposure to Not sure University of SARS-CoV-2 (event) [place] [facility] History of tobacco Cigarette Smoker University of use [place] [facility] History SDOH 2020-08-13 2020-08-13 1 University o f Alcohol Std Drinks 00:00:00 00:00:00 [facility] History SDOH 2020-08-13 2020-08-13 4 University o f Alcohol Binge 00:00:00 00:00:00 [facility] al Branch History SDOH 2020-08-13 2020-08-13 5 University o f Financial 00:00:00 00:00:00 [facility] History SDOH 2020-08-13 2020-08-13 5 University o f Alcohol Frequency 00:00:00 [facility]00[facility] Cigarettes smoked 2020-08-12 2020-08-12 Univers ity of current (pack per 00:00:00 00:00:00 [facility] ) - Reported Branch Tobacco use and 2020-08-12 2020-08-12 Never used Universit y of exposure 00:00:00 00:00:00 [facility] Alcohol intake 2020-08-12 2020-08-12 Current drinker Unive rsity of 00:00:00 00:00:00 of alcohol [facility] (finding) [place] Sex Assigned At [birth year] Universit y of 00:00:00 00:00:00 [facility] Smoking Status Start Date Stop Date Source Current every day smoker 2020-08-12 00:00:00 Uni versity [facility] Medications Ordered Filled Start Stop Current Ordering Indication Dosage Frequency Signature Comments Components Source Medication Medication Date Date Medication? Clinician (SIG) Name Name hydrOXYzine Yes Burn 25mg Take 1 Univ ers 25 mg 1-25 tablet by ity of tablet 00:00: mouth [place] [id number] every 6 Medical (six) Branch hours as needed for Itching. Vital Signs Vital Name Observation Time Observation Value Comments Source Diastolic blood 2020-11-26 17:43:00 104 mm[Hg] Unive rsity of [facility] Heart rate 2020-11-26 17:43:00 102 /min [facility] Body temperature 2020-11-26 17:43:00 36 Narda [facility] Respiratory rate 2020-11-26 17:43:00 14 /min [facility] Body weight 2020-11-26 17:43:00 76.204 kg [facility] BMI 2020-11-26 17:43:00 22.78 kg/m2 [facility] Oxygen saturation in 2020-11-26 17:43:00 98 /min [facility] Arterial blood by [facility] Pulse oximetry Branch Systolic blood 2020-11-26 17:43:00 150 mm[Hg] Univer sity of pressure [facility] Diastolic blood 2020-11-26 17:43:00 104 mm[Hg] Unive rsity of pressure [facility] Heart rate 2020-11-26 17:43:00 102 /min [facility] Body temperature 2020-11-26 17:43:00 36 [facility] rate 2020-11-26 17:43:00 14 /min [facility] Body weight 2020-11-26 17:43:00 76.204 [facility] BMI 2020-11-26 17:43:00 22.78 kg/m2 [facility] Oxygen saturation in 2020-11-26 17:43:00 98 /min [facility] Arterial blood by [facility] Pulse oximetry Branch Systolic blood 2020-11-26 17:43:00 150 mm[Hg] Univer sity of pressure [facility] Procedures This patient has no known procedures. Plan of Care Planned Activity Planned Date Details Comments Source Future Scheduled 2021-03-26 INFLUENZA VACCINE [facility] [place] Test 00:00:00 (Season Ended) [code Medical Branch = INFLUENZA VACCINE (Season Ended)] Future Scheduled 2011 DTaP,Tdap,and Td [facility] [place] Test 00:00:00 Vaccines (1 - Tdap) Medical Branch [code = DTaP,Tdap,and Td Vaccines (1 - Tdap)] Future Scheduled 2010 Hepatitis C screening [facility] [place] Test 00:00:00 (procedure) [code = Medical Branch [id number]] Future Scheduled 2008 SARS-CoV-2 (COVID-19) [facility] [place] Test 00:00:00 Vaccine (1) [code = Medical Branch SARS-CoV-2 (COVID-19) Vaccine (1)] Future Scheduled 2004 Depression screening [facility] [place] Test 00:00:00 (procedure) [code = Medical Branch [id number]] Future Scheduled 1998 PNEUMOCOCCAL 0-64 [facility]iver [facility] [place] Test 00:00:00 YEARS COMBINED SERIES Medica l Branch (1 of 1 - PPSV23) [code = PNEUMOCOCCAL 0-64 YEARS COMBINED SERIES (1 of 1 - PPSV23)] Future Scheduled 1991 VARICELLA VACCINES (1 [facility] [place] Test 00:00:00 of 2 - 2-dose Medical Branch childhood series) [code = VARICELLA VACCINES (1 of 2 - 2-dose childhood series)] Encounters Start End Encounter Admission Attending Care Care Encounter Source Date/Time Date/Time Type Type Clinicians Facility Department ID 2020-11-26 2020-11-26 [facility] Kristy Mercedesnie [id number] 12:30:00 23:59:00 Encounter Andrea Cornel [id number] [facility] 4.2.7.2.686 [id number] 2020-11-26 2020-11-26 Ancillary Room, Luz Maria [id number] 16:20:50 17:20:50 Visit Kristy-Occup Cornel 350.1.13.10 Therapy [place] [id number] [id number] 2020-08-27 2020-08-27 [facility] Ayaz Ashraf [id number] 12:13:40 23:59:00 Encounter Cornel 350.1.13.10 [facility] 4.2.7.2.686 [id number] 2020-08-27 2020-08-27 Ancillary Room, Luz Maria [id number] 13:53:00 14:53:00 Visit Kristy-Occup Cornel 350.1.13.10 Therapy [place] [id number] 2020-08-26 2020-08-26 Patient Shannon Chung Alise [id number] 00:00:00 00:00:00 Outreach E Silva 350.1.13.10 [place] 4.2.7.2.686 [id number] 2020-08-20 2020-08-20 Patient Shannon Chung LEIGHANN [id number] 00:00:00 00:00:00 Outreach E CORNEL 350.1.13.10 [facility] 4.2.7.2.686 [id number] 2020-08-19 2020-08-19 [facility] Luz Maria Dickerson 1.2.372.476 [id number] 12:09:37 23:59:00 Encounter Tian Castillo 350.1.13.10 [facility] 4.2.7.2.686 [id number] 2020-08-19 2020-08-19 Ancillary Room, Luz Maria Ceballos.2.320.666 [id number] 14:12:48 15:12:48 Visit Nya Castillo 350.1.13.10 [facility] 4.2.7.2.686 [id number] 2018-10-19 2018-10-19 Departed [facility] [id number] 16:47:00 19:13:00 Emergency 25 [...] re sults will follow. CHEST 1 VIEW [id number] 07:18:[address] [id number] IMAGING REPORTPatient Name: RENAY BAÑUELOS Catherine of Service: [id number]: 27 Sex: M Order #: [id number] Room: ERSDOB: 1990 X-Ray Number: [id number] Record Number: [id number] Hospital Number: [id number] Physician: ALMA COBIAN Physician: ALMA COBIAN 1 VIEW PORTABLE 06/21/201810:31 PM:History: Congestion . Cough. Suicidal ideation. Left lung pleurisy.Comparison: 05/16/2018Technique: 1 view chestFindings:The cardiomediastinal silhouette is normal. The lungs are clear withoutinfiltrate, effusion, or pneumothorax. The bones are intact.Impression:No acute cardiopulmonary process.Electronically Signed By: Davion Godwin M.D., 06/22/2018 7:16 AMLegally authenticated by CEE KENNEDY 2018-06-22 07:16:10THYROID STIMULATION [id number] 00:16:00 Test Item Value Reference Range Interpretation Comments TSH (test code = TSH) 0.46 UIU/ML 0.465-4.68 L URINE DRUG [id number] 16:47:00 Test Item Value Reference Range Interpretation [...] PCP (test code = NEGATIVE NEGATIVE BMTPCP) [id number] 16:24:00 Test Item Value Reference Range Interpretation [...] code = UAMICRO) NO HEPATITIS C ANTIBODY [id number] 15:51:00 Test Item Value Reference Range Interpretation [...] for no n medical purpose s. CREATINE [id number] 14:39:00 Test Item Value Reference Range Interpretation Comments CK (test code = CK) 62 U/L 55-170 LIVER [id number] 14:39:00 Test Item Value Reference Range Interpretation [...] ALT) 26 U/L 13-69 BMP, BASIC METABOLIC [id number] 14:39:00 Test Item Value Reference Range Interpretation [...] glucose = GLUCOSE) normal <100 MG/ DL- [employer] recommendation* * CALCIUM (test code 9.3 MG/DL 8.4-10.2 = CABLOOD) GFR (test code = 109 A GFR of >9 0 GFR) mL/min/1.73m2 mL/min/1.73m2 is considered norm al. [id number] 14:23:00 Test Item Value Reference Range Interpretation [...] K/UL 1.2-7.2 = NEUT) CHEST XR 2 [id number] 07:16:[address] [id number] IMAGING REPORTPatient Name: RENAY BAÑUELOS of Service: [id number]: 27 Sex: M Order #: [id number] Room: ERSDOB: 1990 X-Ray Number: [id number] Record Number: [id number] Hospital Number: [id number] Physician: Ji VOing Physician: Aline VO 2 [...] authenticated by LUIS PINEDA 2018-05-16 07:13:58MONONUCLEOSIS RAPID [id number] 06:04:00 Test Item Value Reference Range Interpretation Comments LOT # (test code = LOT #) [id number] EXP DATE (test code = EXP 10-26-2018 DATE) POS CNTL (test code = POS POSITIVE POSITIVE A CNTL) NEG CNTL (test code = NEG NEGATIVE NEGATIVE CNTL) MONONUCLEOSIS (test code = NEGATIVE NEGATIVE MONONUC) [id number] 05:35:00 Test Item Value Reference Range Interpretation [...] glucose = GLUCOSE) normal <100 MG/ DL- [employer] recommendation* * CALCIUM (test [...] GFR) mL/min/1.73m2 mL/min/1.73m2 is considered norm al. [id number] 05:18:00 Test Item Value Reference Range Interpretation [...] 6.5 K/UL 1.2-7.2 = NEUT) CT ABDOMEN/PELVIS [id number] 07:27:[address] [id number] IMAGING REPORTPatient Name: RENAY BAÑUELOS ADate of Service: [id number]: 27 Sex: M Order #: [id number] [facility] 1990 X-Ray Number: [id number] Record Number: [id number] Hospital Number: [id number] Physician: Ji VOing Physician: BRETT VO ABDOMEN/PELVIS [...] by CEE KENNEDY 2018-04-20 07:25:06BMP, BASIC METABOLIC [id number] 05:53:00 Test Item Value Reference Range Interpretation [...] glucose = GLUCOSE) normal <100 MG/ DL- [employer] recommendation* * CALCIUM (test code 9.4 MG/DL 8.4-10.2 = CABLOOD) GFR (test code = 97 A GFR of >9 0 GFR) mL/min/1.73m2 mL/min/1.73m2 is considered norm al. LIVER [id number] 05:53:00 Test Item Value Reference Range Interpretation [...] (test code = ALT) 19 U/L 13-69 [id number] 05:53:00 Test Item Value Reference Range Interpretation Comments LIPASE (test code = LIPA) 128 U/L 23-300 [id number] 05:16:00 Test Item Value Reference Range Interpretation [...] BACTERIA (test code = NEGATIVE NONE BACTERIA) [id number] 05:15:00 Test Item Value Reference Range Interpretation [...] BASO%) 0.4 % 0-2 CHEST 1 VIEW [id number] 08:43:00[address] [id number] IMAGING REPORTPatient Name: RENAY BAÑUELOS of Service: [id number]: 27 Sex: M Order #: [id number] Room: QERDOB: 1990 X-Ray Number: [id number] Record Number: [id number] Hospital Number: [id number] Physician: ALMA COBIAN Physician: ALMA COBIAN SAP PORTABLE CHEST at 0820 hours January 12, 2018:CLINICAL HISTORY: DyspneaTECHNIQUE: One viewFINDINGS: The heart and vascularity are within normal limits and the lungsare clear.The bony thorax is intact.Impression: Normal chestElectronically Signed By: Jus Baker M.D., 01/12/2018 8:40 AMLegally authenticated by ROSA M Wheeler 2018-01-12 08:40:50CHEST XR 2 [id number] 08:31:[address] [id number] IMAGING REPORTPatient Name: RENAY BAÑUELOS of Service: [id number]: 27 Sex: M Order #: [id number] Room: ERSDOB: 1990 X-Ray Number: [id number] Record Number: [id number] Hospital Number: [id number] Physician: Kianna DA SILVA Physician: Mira DA SILVA 2 views 8:00 AMComparisons: 11/25/2015HISTORY: Chest tightness, chest pain and shortness of breath.FINDINGS:Heart size is normal.There is no focal lung consolidation.There is no definite pleural effusion or pneumothorax identified.IMPRESSION:No acute cardiopulmonary process.Electronically Signed By: Enrike Chaudhary M.D., 11/01/2017 8:29 AMLegally authenticated by SANJUANA GURROLA 2017-11-01 08:29:01TRDUY [id number] 07:58:00 Test Item Value Reference Range Interpretation Comments TROPER (test code = 0.00 ng/ml 0.0-0.08 TROPER) INTERPRETIVE DATA A POC TROPONIN OF </= 0.08 NG/ML IS CONSIDERED NEGA TIVE
--- NOTE | 2021-01-31 21:21 | RAD REPORT ---
EXAM DESCRIPTION: Gaby Single View01/31/2021 9:11 pm CLINICAL HISTORY: Chest pain COMPARISON: none FINDINGS: The lungs appear clear of acute infiltrate. The heart is normal size IMPRESSION: No acute abnormalities displayed
[2021-01-31] MEDS ORDERED: KETOROLAC 30 MG/ML INJ ONE (21:41)
--- NOTE | 2021-01-31 21:47 | EDPHYS ---
Physician Documentation [facility] Name: Tevin King Age: 30 yrs Sex: Male : 1990 Arrival Date: 01/31/2021 Time: 17:37 Bed 23 Private MD: ED Physician Tyrese Jefferson HPI: 01/31 20:32 This 30 yrs old Male presents to ER via Ambulatory with complaints of Rib jmm Pain. 20:32 The patient or guardian reports chest pain that is located primarily in the anterior jmm chest wall. Onset: The symptoms/episode began/occurred acutely. The pain does not radiate. The chest pain is described as aching, sharp. This is a 30 year old male that presents to the ED with complaints of left sided rib pain. Patient states he eventually injured his rib while wrestling and then again when stretching today. Patient states he felt a pop. . Historical: - Allergies: 18:00 Hydrogen Peroxide; vg1 - Home Meds: 18:00 None [Active]; vg1 - PMHx: 18:00 mouth abscess; vg1 - Immunization history:: Adult Immunizations up to date. - Social history:: Smoking status: Patient reports the use of cigarette tobacco products, smokes one pack cigarettes per day. ROS: 20:32 Constitutional: Negative for fever, chills, and weight loss, Cardiovascular: Negative jmm for chest pain, palpitations, and edema, Respiratory: Negative for shortness of breath, cough, wheezing, and pleuritic chest pain. 20:32 Back: Positive for pain with movement. 20:32 All other systems are negative. Exam: 20:32 Constitutional: This is a well developed, well nourished patient who is awake, alert, jmm and in no acute distress. Head/Face: atraumatic. Eyes: EOMI, no conjunctival erythema appreciated ENT: Moist Mucus Membranes Neck: Trachea midline, Supple 20:32 Respiratory: Normal respirations, no respiratory distress appreciated Abdomen/GI: Non distended, soft Back: Normal ROM Skin: General appearance color normal MS/ Extremity: Moves all extremities, no obvious deformities appreciated, no edema noted to the lower extremities Neuro: Awake and alert, normal gait Psych: Behavior is normal, Mood is normal, Patient is cooperative and pleasant 20:32 Chest/axilla: Palpation: tenderness, that is moderate, of the left lateral anterior chest. Vital Signs: 17:58 BP 133 / 77; Pulse 83; Resp 18; Temp 98.7; Pulse Ox 100% ; Weight 79.38 kg; Height 6 vg1 ft. 0 in. (182.88 cm); Pain 8/10; 19:38 BP 143 / 81; Pulse 82; Resp 16; Pulse Ox 98% on R/A; zb 22:00 BP 107 / 84; Pulse 65; Resp 16; Pulse Ox 100% ; zb 17:58 Body Mass Index 23.73 (79.38 kg, 182.88 cm) vg1 MDM: 20:32 Patient medically screened. [facility] 21:44 Data reviewed: vital signs, nurses notes. Counseling: I had a detailed discussion with [facility] the patient and/or guardian regarding: the historical points, exam findings, and any diagnostic results supporting the discharge/admit diagnosis, radiology results, the need for outpatient follow up, to return to the emergency department if symptoms worsen or persist or if there are any questions or concerns that arise at home. ED course: Xray negative. Advised to follow up with pcp and otherwise given strict return precautions. patient understood and agrees with the plan of care.. 01/31 20:54 Order name: Chest Single View XRAY; Complete Time: 21:25 [facility] Administered Medications: 21:22 Drug: Ketorolac 30 mg Route: IM; Site: right deltoid; zb 02/01 00:03 Follow up: Response: No adverse reaction; Marked relief of symptoms; Pain is decreased zb Disposition: 06:26 Co-signature as Attending Physician, Tyrese Jefferson MD. [email or web address] Disposition Summary: 01/31/21 21:47 Discharge Ordered Location: Home [facility] Condition: Stable [facility] Diagnosis - Sprain of ribs [facility] Followup: [facility] - With: Private Physician - When: 2 - 3 days - Reason: Recheck today's complaints, Continuance of care, Re-evaluation by your physician Discharge Instructions: - Discharge Summary Sheet [facility] - Rib Contusion [facility] Forms: - Medication Reconciliation Form [facility] - Thank You Letter [facility] - Antibiotic Education [facility] - Prescription Opioid Use [facility] Prescriptions: - orphenadrine citrate 100 mg Oral Tablet Sustained Release - take 1 tablet by ORAL route 2 times per day As needed; 20 tablet; Refills: 0, [facility] Product Selection Permitted Signatures: Dispatcher [employer] José Luis Hart PA PA jmm Garcia, Victoria, RN RN vg1 Tyrese Jefferson MD MD mh7 Autumn Bernal RN RN zb
--- NOTE | 2021-01-31 21:47 | ER ---
Nurse's Notes [facility] Name: Tevin King Age: 30 yrs Sex: Male : 1990 Arrival Date: 01/31/2021 Time: 17:37 Bed 23 Private MD: Diagnosis: Sprain of ribs Presentation: 01/31 17:58 Chief complaint: Patient states: "January 25, 2021 wrestling around with friends and body vg1 has been sore and today at work rolled a log and heard a 'pop' on Left side of rib and it has been hurting ever since." Pt stated when taking a deep 'it feels like Im being stabbed'. Coronavirus screen: Client denies travel out of the [place] in the last 14 days. Ebola Screen: Patient negative for fever greater than or equal to 101.5 degrees Fahrenheit, and additional compatible Ebola Virus Disease symptoms. Initial Sepsis Screen: Does the patient meet any 2 criteria? No. Patient's initial sepsis screen is negative. Does the patient have a suspected source of infection? No. Patient's initial sepsis screen is negative. Risk Assessment: Do you want to hurt yourself or someone else? Patient reports no desire to harm self or others. Onset of symptoms was January 31, 2021. 17:58 Method Of Arrival: Ambulatory 1 17:58 Acuity: HAIDER 4 vg1 Triage Assessment: 18:00 General: Appears in no apparent distress. uncomfortable, Behavior is calm, cooperative. vg1 Pain: Complains of pain in left lateral posterior chest. 18:00 Respiratory:. vg1 Historical: - Allergies: 18:00 Hydrogen Peroxide; vg1 - Home Meds: 18:00 None [Active]; vg1 - PMHx: 18:00 mouth abscess; vg1 - Immunization history:: Adult Immunizations up to date. - Social history:: Smoking status: Patient reports the use of cigarette tobacco products, smokes one pack cigarettes per day. Screenin:55 Abuse screen: Denies threats or abuse. Denies injuries from another. Nutritional zb screening: No deficits noted. Tuberculosis screening: No symptoms or risk factors identified. Fall Risk None identified. Assessment: 19:30 General: Appears in no apparent distress. uncomfortable, Behavior is calm, cooperative. zb Pain: Complains of pain in left lateral posterior chest Pain does not radiate. Pain currently is 8 out of 10 on a pain scale. Quality of pain is described as sharp, Pain began >3 days Is continuous. Neuro: Level of Consciousness is awake, alert, obeys commands, Oriented to person, place, time, situation. Cardiovascular: Patient's skin is warm and dry. Respiratory: Reports pain with respiration Airway is patent Respiratory effort is even, unlabored, Respiratory pattern is regular, symmetrical, Denies shortness of breath. GI: No deficits noted. Derm: Skin is intact, is healthy with good turgor, Skin is dry, Skin is normal, Skin temperature is warm. Musculoskeletal: Range of motion: intact in all extremities. 21:00 Reassessment: Patient appears in no apparent distress at this time. Patient and/or zb family updated on plan of care and expected duration. Pain level reassessed. Patient is alert, oriented x 3, equal unlabored respirations, skin warm/dry/pink. 22:00 Reassessment: Patient appears in no apparent distress at this time. Patient and/or zb family updated on plan of care and expected duration. Pain level reassessed. Patient is alert, oriented x 3, equal unlabored respirations, skin warm/dry/pink. Vital Signs: 17:58 BP 133 / 77; Pulse 83; Resp 18; Temp 98.7; Pulse Ox 100% ; Weight 79.38 kg; Height 6 vg1 ft. 0 in. (182.88 cm); Pain 8/10; 19:38 BP 143 / 81; Pulse 82; Resp 16; Pulse Ox 98% on R/A; zb 22:00 BP 107 / 84; Pulse 65; Resp 16; Pulse Ox 100% ; zb 17:58 Body Mass Index 23.73 (79.38 kg, 182.88 cm) vg1 ED Course: 17:37 Patient arrived in ED. as 18:00 Triage completed. vg1 18:00 Arm band placed on Patient placed in waiting room, Patient notified of wait time. vg1 19:24 José Luis Heredia PA is PHCP. [facility] [place] 19:24 Tyrese Jefferson MD is Attending Physician. [facility] [place] 19:35 Autumn Bernal RN is Primary Nurse. zb 19:55 Patient has correct armband on for positive identification. Adult w/ patient. Pulse ox zb on. NIBP on. Door closed. Noise minimized. 21:10 Chest Single View XRAY In Process Unspecified. EDMS 22:00 No provider procedures requiring assistance completed. Patient did not have IV access zb during this emergency room visit. Administered Medications: 21:22 Drug: Ketorolac 30 mg Route: IM; Site: right deltoid; zb 02/01 00:03 Follow up: Response: No adverse reaction; Marked relief of symptoms; Pain is decreased zb Outcome: 01/31 21:47 Discharge ordered by . amilcar 22:00 Discharged to home ambulatory. zb 22:00 Condition: stable 22:00 Discharge instructions given to patient, Instructed on discharge instructions, follow up and referral plans. medication usage, Demonstrated understanding of instructions, follow-up care, medications, Prescriptions given X 1. 22:01 Patient left the ED. em Signatures: Dispatcher [employer] EDMS José Luis Heredia PA PA jmm Munoz, Edgar, DES[employer] em Adina Reyes Victoria, RN RN [facility] Autumn Bernal RN RN zb Corrections: (The following items were deleted from the chart) 18:02 17:58 Chief complaint: Patient states: "January 25, 2021 wrestling around with friends and vg1 body has been sore and today at work rolled a log and heard a 'pop' on Left side of rib and it has been hurting ever since." vg1 18:02 17:58 BP 133 / 77; Resp 83bpm; Pulse Ox 100%; Temp 98.7F; 79.38 kg; Height 6 ft. 0 in.; vg1 BMI: 23.7; Pain 8/10; vg1
[2021-01-31 22:16] VITALS: TEMP 98.7
[2021-01-31 22:17] VITALS: BP 143/81; O2SAT 98
== END 2021-01-31 22:01 | disposition home or self-care (01) ==
LOC: ER 17:36
DX: S23.41XA Sprain of ribs, initial encounter (principal); F17.210 Nicotine dependence, cigarettes, uncomplicated; Z88.3 Allergy status to other anti-infective agents
CPT/HCPCS: 71045; 96372; 99284